=== PATIENT | female | born 1985 | race Caucasian/White ===

== ENCOUNTER 2020-04-05 03:07 | Emergency (ER) | payer BC ==
[2020-04-05 03:14] VITALS: BP 157/95; PULSE 107
[2020-04-05] MEDS ORDERED: Sodium Chloride 0.9% 10 ML Syringe FLUSH PRN (03:24)
[2020-04-05] MEDS ORDERED: Sodium Chloride 0.9% 1,000 ML IV SCH (03:30)
[2020-04-05] MEDS ORDERED: Lidocaine 1% 50 ML MDV INJECT ONE (03:37)
--- NOTE | 2020-04-05 03:43 | EDM.PDOCBH ---
ED HPI GENERAL MEDICAL PROBLEM - General Chief Complaint: Behavioral/Psych Stated Complaint: [facility] Time Seen by Provider: 04/05/20 03:14 Source of Information: Reports: Patient, RN Notes Reviewed - History of Present Illness INITIAL COMMENTS - FREE TEXT/NARRATIVE: 34 yr old female brought here by [facility] after being found outside house intoxicated and having cut her L wrist. Now on arrival to ED pt is remorseful, states she was upset that with relationship that 18 yr old son is having with girlfriend. States the "girlfriend lied about something"and that made her upset. Wanted to talk to her but all he wanted to do was sleep. States I "lost it and cut my wrist" She denies feeling depressed, states she does not want to . Has been drinking vodka. - Related Data Allergies Allergy/AdvReac Type Severity Reaction Status Date / Time No Known Allergies Allergy Verified 04/05/20 03:14 Home Meds: Home Meds . 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 Endocrine/Metabolic History: Reports: Obesity/BMI 30+ Hematologic History: Reports: Other (See Below) Other Hematologic History: Liden factor 5 Immunologic History: Reports: None Oncologic (Cancer) History: Reports: None Dermatologic History: Reports: None - Infectious Disease History Infectious Disease History: Reports: Mononucleosis, MRSA - Past Surgical History HEENT Surgical History: Reports: Adenoidectomy, Myringotomy w Tube(s), Tonsillectomy Female Surgical History: Reports: Section, Hysterectomy, Salpingo- Oophorectomy Social & Family History - Family History Family Medical History: Noncontributory - Tobacco Use Smoking Status *Q: Current Every Day Smoker Years of Tobacco use: 10 Packs/Tins Daily: 1 - Caffeine Use Caffeine Use: Reports: None - Recreational Drug Use Recreational Drug Use: Yes Recreational Drug Type: Reports: Marijuana/Hashish ED ROS GENERAL - Review of Systems Review Of Systems: See Below Constitutional: Denies: Fever HEENT: Reports: No Symptoms Respiratory: Denies: Shortness of Breath Cardiovascular: Denies: Chest Pain GI/Abdominal: Denies: Abdominal Pain, Nausea, Vomiting Musculoskeletal: Reports: Other (Lac injuries L wrist) Neurological: Reports: Weakness. Denies: Numbness, Tingling Psychiatric: Reports: Mood Lability. Denies: Depression, Homicidal Ideation ED EXAM, BEHAVIORAL HEALTH - Physical Exam Exam: See Below Exam Limited By: Intoxication General Appearance: Alert, No Apparent Distress Eye Exam: Bilateral Eye: PERRL Head: Atraumatic Neck: Supple Respiratory/Chest: No Respiratory Distress, Lungs Clear, Normal Breath Sounds Cardiovascular: Tachycardia Extremities: Other (7 cm full skin thickness Lac L mid forearm, gaping, horizontal, 4 cm and 3 cm mildly gaping lac below that along with a few superficial abrasions. ) Neurological: Alert, Normal Mood/Affect (at least mildly intoxicated but answers questions appropriately, cooperative with exam), No Motor/Sensory Deficits Psychiatric: Alert, Normal Cognition, Normal Mood, Oriented. No: Flight of Ideas, Homicidal Thoughts, Suicidal Plan, Suicidal Thoughts Skin Exam: Warm, Dry, Normal color ED LACERATION PROCEDURES - Laceration/Wound Repair Left Anterior Arm Lac/wound length in cm: 7 Appearance: Linear, Clean Distal NVT: Neuro & Vascular Intact Anesthetic Type: Local Local Anesthesia - Lidocaine (Xylocaine): 1% Plain Skin Prep: Saline Suture Size: 3-0 # of Sutures: 16 Suture Type: Nylon COURSE, BEHAVIORAL HEALTH COMP - Course Vital Signs: Last Vital Signs Temp 97.3 F 04/05/20 03:10 Pulse 107 H 04/05/20 03:10 Resp 16 04/05/20 03:10 BP 157/95 H 04/05/20 03:10 Pulse Ox 97 04/05/20 03:10 Orders, Labs, Meds: Laboratory Tests 04/05/20 04/05/20 04/05/20 Range/Units 03:25 03:50 03:50 WBC 6.91 (3.98-10.04) K/mm3 RBC 3.97 L (3.98-5.22) M/mm3 Hgb 14.0 D (11.2-15.7) gm/dl Hct 41.8 (34.1-44.9) % MCV 105.3 H D (79.4-94.8) fl MCH 35.3 H (25.6-32.2) pg MCHC 33.5 (32.2-35.5) g/dl RDW Std Deviation 53.9 H (36.4-46.3) fL Plt Count 141 L D (182-369) K/mm3 MPV 8.9 L (9.4-12.3) fl Neut % (Auto) 51.1 (34.0-71.1) % Lymph % (Auto) 37.0 (19.3-51.7) % [place] % (Auto) 7.8 (4.7-12.5) % Eos % (Auto) 3.0 (0.7-5.8) Baso % (Auto) 1.0 (0.1-1.2) % Neut # (Auto) 3.52 (1.56-6.13) K/mm3 Lymph # (Auto) 2.56 (1.18-3.74) K/mm3 [place] # (Auto) 0.54 H (0.24-0.36) K/mm3 Eos # (Auto) 0.21 (0.04-0.36) K/mm3 Baso # (Auto) 0.07 (0.01-0.08) K/mm3 Manual Slide Review Abnormal smear Sodium 143 (136-145) mEq/L Potassium 4.0 (3.5-5.1) mEq/L Chloride 104 (98-107) mEq/L Carbon Dioxide 21 (21-32) mEq/L Anion Gap 22.0 H (5-15) BUN 9 (7-18) mg/dL Creatinine 0.8 (0.55-1.02) mg/dL Est Cr Clr Drug Dosing 84.76 mL/min Estimated GFR (MDRD) > 60 (>60) mL/min BUN/Creatinine Ratio 11.3 L (14-18) Glucose 106 (74-106) mg/dL Calcium 9.4 (8.5-10.1) mg/dL Total Bilirubin 3.3 H (0.2-1.0) mg/dL AST 202 H (15-37) U/L ALT 55 (14-59) U/L Alkaline Phosphatase 250 H (46-116) U/L Total Protein 8.8 H (6.4-8.2) g/dl Albumin 4.1 (3.4-5.0) g/dl Globulin 4.7 gm/dL Albumin/Globulin Ratio 0.9 L (1-2) Urine Opiates Screen Negative (BDFJSE=051) Ur Buprenorphine Scrn Negative (CUTOFF=10) Ur Oxycodone Screen Negative (YEK4VL=289) Urine Methadone Screen Negative (TQBSPA=397) Ur Propoxyphene Screen Negative (PHREPS=512) Ur Barbiturates Screen Negative (PDONMB=510) Ur Tricyclics Screen Negative (ZCDBJD=291) Ur Phencyclidine Scrn Negative (CUTOFF=25) Ur Amphetamine Screen Negative (RSDXRM=101) U Methamphetamines Scrn Negative (BPDPAV=640) U Benzodiazepines Scrn Negative (QKQLNC=473) U Cocaine Metab Screen Negative (MOGFML=206) U Marijuana (THC) Screen Presumptive positive H (CUTOFF=50) Ethyl Alcohol 0.26 (0.00) gm% Medications Discontinued Medications Generic Name Dose Route Start Last Admin Trade Name Freq PRN Reason Stop Dose Admin Diphtheria/Tetanus/Acell Pertussis 0.5 ml 04/05/20 05:49 04/05/20 06:37 Adacel IM 04/05/20 05:50 0.5 ml .ONCE ONE Administration Sodium Chloride 1,000 mls @ 999 mls/hr 04/05/20 03:30 04/05/20 03:53 Normal Saline IV 999 mls/hr ONETIME CORDELL Administration Lidocaine HCl 50 ml 04/05/20 03:37 04/05/20 03:53 Xylocaine 1% INJECT 04/05/20 03:38 50 ml ONETIME ONE Administration Sodium Chloride 10 ml 04/05/20 03:24 04/05/20 03:53 Saline Flush FLUSH 10 ml ASDIRECTED PRN Administration Keep Vein Open Re-Assessment/Re-Exam: Lac repair continued Lac #2. L forearm 4 cm linear, anesth. with 1 % lidocaine, repaired with 6 3- O nylon sutures Lac #3 L forearm cm linear. anesth with 1 % lidocaine. repaired with 3 3-O nylon sutures 07:00. Etoh was 0.26 on arrival 4 hrs ago. Have given 1 liter NS, repaired multiple lac injuries L forearm. She repeats that I "just lost control". She continues to state she did this out of frustration and the alcohol. She does not want to . She and her both believe it is safe for her to go home. She does want help to stop drinking and is willing to follow up at [facility]. Discharge instr. as documented. Departure - Departure Time of Disposition: 07:30 Disposition: Home, Self-Care 01 Condition: Fair Clinical Impression: Stress reaction Alcohol intoxication Qualifiers: Complication of substance-induced condition: uncomplicated Qualified Code(s): F10.920 - Alcohol use, unspecified with intoxication, uncomplicated Laceration of forearm Qualifiers: Encounter type: initial encounter Laterality: left Qualified Code(s): S51.812A - Laceration without foreign body of left forearm, initial encounter - Discharge Information Instructions: Binge-Drinking Information, Adult, Laceration Care, Adult, [id number], Stress Referrals: PCP,None [Primary Care Provider] - Forms: ED Department Discharge Additional Instructions: Laceration care instr. Stitches out in 10 days. They can be removed at your regular medical clinic. Avoid further alcohol as best you can. [phone] for appointment or you can go in at 8:30 any morning Wednesday through Wednesday for initial intake interview. Return to ED as needed if symptoms worsening in any way. Sepsis Event Note (ED) - Evaluation Sepsis Screening Result: No Definite Risk
[2020-04-05] MEDS ORDERED: Diphtheria,Pertussis(Acell),Tetanus Vaccine 0.5 ML Syringe IM ONE (05:49)
== END 2020-04-05 07:45 | disposition home or self-care (01) ==
LOC: JD.ED 03:07
DX: S51.812A Laceration without foreign body of left forearm, initial encounter (principal); F10.120 Alcohol abuse with intoxication, uncomplicated; F43.9 Reaction to severe stress, unspecified; E66.9 Obesity, unspecified; Z68.42 Body mass index [BMI] 45.0-49.9, adult; Z23 Encounter for immunization; W26.8XXA Contact with other sharp object(s), not elsewhere classified, initial encounter
CPT/HCPCS: 12002; 36415; 80053; 80306; 80307; 85025; 90471; 90715; 99285; J2001; J7030; 99282

== ENCOUNTER 2020-06-16 19:56 | Emergency (ER) | payer BC ==
[2020-06-16 20:14] VITALS: BP 136/74; PULSE 99
--- NOTE | 2020-06-16 21:25 | EDM.PDOC ---
ED HPI GENERAL MEDICAL PROBLEM - General Chief Complaint: General Stated Complaint: TURNED YELLOW SWOLLEN STOMACH Time Seen by Provider: 06/16/20 20:35 Source of Information: Reports: Patient History Limitations: Reports: No Limitations - History of Present Illness INITIAL COMMENTS - FREE TEXT/NARRATIVE: Arely is a pleasant 34-year-old woman with a past medical history significant for chronic daily alcoholism, who now presents the ED with painless jaundice. She states that she ordinarily drinks a 1.75 L bottle of vodka every 3 days, however, she developed jaundice, scleral icterus, and orange colored urine about 2 months ago. She stopped drinking about 6 weeks ago, and has remained sober since. She states that she has had increased thirst for over a month. She has had nausea and a decreased appetite for 1 week, and states that she vomited 2 days ago. She reports an approximately 39 pound weight gain since last week. She states that she developed a distended abdomen 2 days ago. She feels slightly constipated. No recent diarrhea. No recent cough or dyspnea, chest pain or palpitations, or urinary symptoms. She states that she has had a fever come and go her entire life, with a temperature of 100.7 degrees last night. The patient states that she has been taking an [id number] "Detox cleanse", 2 tablets once a day, for the past month. The patient states that she has not had any medical evaluation for her jaundice prior to tonight. It is not clear what precipitated her coming to the ED tonight. Here in the ED, the patient is found to be hemodynamically stable, afebrile, saturating 96% on room air. The patient's PCP is Dr. Julianna Erwin. She states that she last saw Dr. Erwin about 2 years ago. Abdomen Pain Score (Numeric/FACES): 6 - Related Data Allergies Allergy/AdvReac Type Severity Reaction Status Date / Time No Known Allergies Allergy Verified 06/16/20 20:15 Home Meds: Home Meds Multivitamin [Multivitamins] 1 cap PO DAILY 06/16/20 [History] Past Medical History Gastrointestinal History: Reports: Other (See Below) (States diagnosed with celiac disease, however she states that it was by colonoscopy, which is NOT how is diagnosed) Genitourinary History: Reports: Urinary Incontinence (stress incontinence) Psychiatric History: Reports: Addiction (alcohol, opioids), Depression (untreated), Psych Hospitalization(s), Suicide Attempt, Other (See Below) (Fibromyalgia) Endocrine/Metabolic History: Reports: Obesity/BMI 30+ Hematologic History: Reports: Other (See Below) (Factor V Leiden - untreated. No history of DVT.) - Infectious Disease History Infectious Disease History: Reports: Mononucleosis, MRSA - Past Surgical History HEENT Surgical History: Reports: Adenoidectomy, Myringotomy w Tube(s) (bilateral), Tonsillectomy GI Surgical History: Reports: Colonoscopy (x 1) Female Surgical History: Reports: Section (x 2), Hysterectomy (complete), Tubal Ligation Social & Family History - Family History Family Medical History: Noncontributory - Tobacco Use Tobacco Use Status *Q: Current Every Day Tobacco User Years of Tobacco use: 12 Packs/Tins Daily: 1 - Caffeine Use Caffeine Use: Reports: None - Alcohol Use Alcohol Use History: Yes Alcohol Use Frequency: Daily (see HPI) - Recreational Drug Use Recreational Drug Use: Yes Drug Use in Last 12 Months: Yes Recreational Drug Type: Reports: Marijuana/Hashish (smokes daily), Other (see below) (Prior abuse of opioids) - Living Situation & Occupation Living situation: Reports: , with Spouse, with Family (2 kids + her father) Occupation: Unemployed ED ROS GENERAL - Review of Systems Review Of Systems: Comprehensive ROS is negative, except as noted in HPI. ED EXAM, GENERAL - Physical Exam Exam: See Below Exam Limited By: No Limitations General Appearance: Alert, WD/WN, No Apparent Distress Eye Exam: Bilateral Eye: EOMI, Other (scleral icterus) Ears: Normal External Exam, Hearing Grossly Normal Nose: Normal Inspection Throat/Mouth: Normal Inspection, Normal Lips, Normal Voice, No Airway Compromise Head: Atraumatic, Normocephalic Neck: Normal Inspection, Full Range of Motion Respiratory/Chest: No Respiratory Distress, Lungs Clear, Normal Breath Sounds, No Accessory Muscle Use Cardiovascular: Normal Peripheral Pulses, Regular Rate, Rhythm, No Gallop, No JVD, No Murmur, No Rub Peripheral Pulses: 3+: Radial (L), Radial (R) GI/Abdominal: Normal Bowel Sounds, Soft, No Distention, No Abnormal Bruit, Tender (Mild, generalized, non-focal), Other (No obvious ascites. No obvious organomegaly.) Back Exam: Normal Inspection, Full Range of Motion, NT Extremities: Normal Inspection, Normal Range of Motion, Normal Capillary Refill Neurological: Alert, Oriented, Normal Cognition, No Motor/Sensory Deficits Psychiatric: Normal Affect Skin Exam: Warm, Dry, Intact, Jaundice, Rash (Mild erythematous on the anterior chest) #1 Interpretation EKG Date: 06/16/20 Time: 21:20 Rhythm: NSR Rate (Beats/Min): 94 [place]: Normal P-Wave: Present QRS: Normal ST-T: Normal QT: Normal (near upper limit of normal) Comparison: NA - No Prior EKG Course - Vital Signs Last Recorded V/S: Last Vital Signs Temp 36.6 C 06/16/20 20:06 Pulse 99 06/16/20 20:06 Resp 16 06/16/20 20:06 BP 136/74 06/16/20 20:06 Pulse Ox 96 06/16/20 20:06 Orthostatic Blood Pressure [ 121/73 Standing] Orthostatic Blood Pressure [ 124/62 Supine] - Orders/Labs/Meds Orders: Active Orders 24 hr Category Date Time Status EKG Documentation Completion [RC] STAT Care 06/16/20 21:03 Active Orthostatic Vital Signs [RC] STAT Care 06/16/20 21:03 Active Chest 2V [CR] Stat Exams 06/16/20 21:02 Taken CORONAVIRUS COVID-19 PCR PHL Stat Lab 06/16/20 22:05 Received CULTURE BLOOD [BC] Stat Lab 06/16/20 21:30 Received CULTURE BLOOD [BC] Stat Lab 06/16/20 21:40 Received HEPATITIS PANEL (4) [REF] Stat Lab 06/16/20 21:40 Received Blood Culture x2 Reflex Set [OM.PC] Stat Oth 06/16/20 21:07 Ordered Labs: Laboratory Tests 06/16/20 06/16/20 06/16/20 Range/Units 21:30 21:30 21:30 WBC 8.43 (3.98-10.04) K/mm3 RBC 3.23 L (3.98-5.22) M/mm3 Hgb 11.1 L D (11.2-15.7) gm/dl Hct 33.5 L (34.1-44.9) % MCV 103.7 H (79.4-94.8) fl MCH 34.4 H (25.6-32.2) pg MCHC 33.1 (32.2-35.5) g/dl RDW Std Deviation 61.9 H (36.4-46.3) fL Plt Count 148 L (182-369) K/mm3 MPV 10.0 (9.4-12.3) fl Neutrophils % (Manual) 74 H (40-60) % Band Neutrophils % 0 (0-10) % Lymphocytes % (Manual) 17 L (20-40) % Atypical Lymphs % 0 % Monocytes % (Manual) 5 (2-10) % Eosinophils % (Manual) 4 (0.7-5.8) % Basophils % (Manual) 0 L (0.1-1.2) Platelet Estimate Adequate Anisocytosis 2+ moderate Macrocytosis 2+ moderate Spherocytes Few RBC Morph Comment Not Reportable PT (9.7-11.7) SECONDS INR APTT (22-31) SECONDS Sodium 135 L (136-145) mEq/L Potassium 3.8 (3.5-5.1) mEq/L Chloride 101 (98-107) mEq/L Carbon Dioxide 24 (21-32) mEq/L Anion Gap 13.8 (5-15) BUN 8 (7-18) mg/dL Creatinine 0.7 (0.55-1.02) mg/dL Est Cr Clr Drug Dosing 96.86 mL/min Estimated GFR (MDRD) > 60 (>60) mL/min BUN/Creatinine Ratio 11.4 L (14-18) Glucose 136 H (74-106) mg/dL Lactic Acid 1.7 (0.4-2.0) mmol/L Calcium 8.3 L (8.5-10.1) mg/dL Magnesium 1.8 (1.8-2.4) mg/dl Total Bilirubin 20.6 H (0.2-1.0) mg/dL Direct Bilirubin (0.0-0.2) mg/dl GGT (5-55) U/L AST 97 H (15-37) U/L ALT 24 (14-59) U/L Alkaline Phosphatase 222 H (46-116) U/L Lactate Dehydrogenase 144 (81-234) U/L NT-Pro-B Natriuret Pep (0-125) pg/mL Total Protein 5.5 L (6.4-8.2) g/dl Albumin 2.1 L (3.4-5.0) g/dl Globulin 3.4 gm/dL Albumin/Globulin Ratio 0.6 L (1-2) Lipase 87 (73-393) U/L Salicylates (2.8-20) mg/dL Urine Opiates Screen (VSGFGJ=835) Ur Buprenorphine Scrn (CUTOFF=10) Ur Oxycodone Screen (FAH6YD=116) Urine Methadone Screen (WBYDJP=468) Ur Propoxyphene Screen (WIAYUL=250) Acetaminophen 0 L (10-30) ug/mL Ur Barbiturates Screen (BYVQDE=991) Ur Tricyclics Screen (TEJSCX=062) Ur Phencyclidine Scrn (CUTOFF=25) Ur Amphetamine Screen (BMDEPO=420) U Methamphetamines Scrn (VPFLPZ=701) U Benzodiazepines Scrn (GEEVLR=403) U Cocaine Metab Screen (UXWZIF=895) U Marijuana (THC) Screen (CUTOFF=50) Ethyl Alcohol 0.00 (0.00) gm% 06/16/20 06/16/20 06/16/20 Range/Units 21:30 21:30 21:30 WBC (3.98-10.04) K/mm3 RBC (3.98-5.22) M/mm3 Hgb (11.2-15.7) gm/dl Hct (34.1-44.9) % MCV (79.4-94.8) fl MCH (25.6-32.2) pg MCHC (32.2-35.5) g/dl RDW Std Deviation (36.4-46.3) fL Plt Count (182-369) K/mm3 MPV (9.4-12.3) fl Neutrophils % (Manual) (40-60) % Band Neutrophils % (0-10) % Lymphocytes % (Manual) (20-40) % Atypical Lymphs % % Monocytes % (Manual) (2-10) % Eosinophils % (Manual) (0.7-5.8) % Basophils % (Manual) (0.1-1.2) Platelet Estimate Anisocytosis Macrocytosis Spherocytes RBC Morph Comment PT 22.4 H (9.7-11.7) SECONDS INR 2.12 APTT 31 (22-31) SECONDS Sodium (136-145) mEq/L Potassium (3.5-5.1) mEq/L Chloride (98-107) mEq/L Carbon Dioxide (21-32) mEq/L Anion Gap (5-15) BUN (7-18) mg/dL Creatinine (0.55-1.02) mg/dL Est Cr Clr Drug Dosing mL/min Estimated GFR (MDRD) (>60) mL/min BUN/Creatinine Ratio (14-18) Glucose (74-106) mg/dL Lactic Acid (0.4-2.0) mmol/L Calcium (8.5-10.1) mg/dL Magnesium (1.8-2.4) mg/dl Total Bilirubin (0.2-1.0) mg/dL Direct Bilirubin 15.90 H (0.0-0.2) mg/dl GGT 116 H (5-55) U/L AST (15-37) U/L ALT (14-59) U/L Alkaline Phosphatase (46-116) U/L Lactate Dehydrogenase (81-234) U/L NT-Pro-B Natriuret Pep (0-125) pg/mL Total Protein (6.4-8.2) g/dl Albumin (3.4-5.0) g/dl Globulin gm/dL Albumin/Globulin Ratio (1-2) Lipase (73-393) U/L Salicylates < 0.2 L (2.8-20) mg/dL Urine Opiates Screen (WCUXAK=708) Ur Buprenorphine Scrn (CUTOFF=10) Ur Oxycodone Screen (MLC7HA=138) Urine Methadone Screen (KPOUJC=278) Ur Propoxyphene Screen (QOODNH=803) Acetaminophen (10-30) ug/mL Ur Barbiturates Screen (RNWAQM=184) Ur Tricyclics Screen (BKIJIT=751) Ur Phencyclidine Scrn (CUTOFF=25) Ur Amphetamine Screen (BDTVGI=800) U Methamphetamines Scrn (GHFCFL=065) U Benzodiazepines Scrn (JGIFCG=584) U Cocaine Metab Screen (JANOED=798) U Marijuana (THC) Screen (CUTOFF=50) Ethyl Alcohol (0.00) gm% 06/16/20 06/16/20 Range/Units 21:30 22:05 WBC (3.98-10.04) K/mm3 RBC (3.98-5.22) M/mm3 Hgb (11.2-15.7) gm/dl Hct (34.1-44.9) % MCV (79.4-94.8) fl MCH (25.6-32.2) pg MCHC (32.2-35.5) g/dl RDW Std Deviation (36.4-46.3) fL Plt Count (182-369) K/mm3 MPV (9.4-12.3) fl Neutrophils % (Manual) (40-60) % Band Neutrophils % (0-10) % Lymphocytes % (Manual) (20-40) % Atypical Lymphs % % Monocytes % (Manual) (2-10) % Eosinophils % (Manual) (0.7-5.8) % Basophils % (Manual) (0.1-1.2) Platelet Estimate Anisocytosis Macrocytosis Spherocytes RBC Morph Comment PT (9.7-11.7) SECONDS INR APTT (22-31) SECONDS Sodium (136-145) mEq/L Potassium (3.5-5.1) mEq/L Chloride (98-107) mEq/L Carbon Dioxide (21-32) mEq/L Anion Gap (5-15) BUN (7-18) mg/dL Creatinine (0.55-1.02) mg/dL Est Cr Clr Drug Dosing mL/min Estimated GFR (MDRD) (>60) mL/min BUN/Creatinine Ratio (14-18) Glucose (74-106) mg/dL Lactic Acid (0.4-2.0) mmol/L Calcium (8.5-10.1) mg/dL Magnesium (1.8-2.4) mg/dl Total Bilirubin (0.2-1.0) mg/dL Direct Bilirubin (0.0-0.2) mg/dl GGT (5-55) U/L AST (15-37) U/L ALT (14-59) U/L Alkaline Phosphatase (46-116) U/L Lactate Dehydrogenase (81-234) U/L NT-Pro-B Natriuret Pep 230 H (0-125) pg/mL Total Protein (6.4-8.2) g/dl Albumin (3.4-5.0) g/dl Globulin gm/dL Albumin/Globulin Ratio (1-2) Lipase (73-393) U/L Salicylates (2.8-20) mg/dL Urine Opiates Screen Negative (MSXXEH=887) Ur Buprenorphine Scrn Negative (CUTOFF=10) Ur Oxycodone Screen Negative (IHE7NN=619) Urine Methadone Screen Negative (ABGZOY=376) Ur Propoxyphene Screen Negative (EGKTLV=093) Acetaminophen (10-30) ug/mL Ur Barbiturates Screen Negative (DMONHL=695) Ur Tricyclics Screen Presumptive positive H (LGXXAA=750) Ur Phencyclidine Scrn Negative (CUTOFF=25) Ur Amphetamine Screen Negative (QNVVYU=889) U Methamphetamines Scrn Negative (DJKGVR=318) U Benzodiazepines Scrn Negative (BBISIU=751) U Cocaine Metab Screen Negative (YGYPGV=580) U Marijuana (THC) Screen Presumptive positive H (CUTOFF=50) Ethyl Alcohol (0.00) gm% - Re-Assessments/Exams Free Text/Narrative Re-Assessment/Exam: 06/16/20 21:16 As above, the patient has had jaundice with orange-colored urine for the past 2 months, although did not stop drinking alcohol until 6 weeks ago. She has been thirsty for more than a month. She has had a week of nausea with decreased appetite, and vomited 2 days ago. She reports an approximately 39 pound weight gain over the past week, with 2 days of distended abdomen, although on physical exam, she does not have obvious ascites, however, her underlying body habitus makes examination of her abdomen difficult. No obvious organomegaly. The patient is likely suffering from alcoholic hepatitis or cirrhosis, although other etiologies are possible. Since the patient is not acutely ill, and indeed, it is unclear what specifically precipitated her coming to the ED tonight, I explained to the patient that we will simply obtain a snapshot of her condition tonight, and she will almost certainly be discharged home, with the need to follow-up with her PCP and subsequent referral to GI/hepatology. I have therefore ordered a work-up that includes orthostatics, blood work that includes a send-out hepatitis panel, 2 sets of blood cultures, a urine drug screen, a send-out swab for the SARS-CoV-2 virus, a chest x-ray, and an ECG. 06/16/20 22:03 The patient is not orthostatic. 2-view radiograph of the chest is read by ad as "Normal". 06/16/20 23:14 The patient's CBC is remarkable for a H/H mildly depressed at 11.1/33.5, and thrombocytopenia of 148,000, with the remainder of her CBC being unremarkable. Her CMP is remarkable for a sodium at the lower limits of normal at 135. Her blood glucose is mildly elevated at 136. Her TBil significantly elevated at 20.6 with a DBil of acutely elevated at 15.90. Her GGTP is modestly elevated at 116. Her alkaline phosphatase is mildly elevated at 222. Her AST is elevated at 97 with an ALT normal at 24, with the remainder of her CMP being unremarkable. Her magnesium level is within normal limits at 1.8. Her lactic acid level is within normal limits at 1.7. Her lipase level is within normal limits at 87. Her LDH is within normal limits at 144. Her BNP is mildly elevated at 230. Her PTT is mildly elevated at 22.4 with a PT of 31 and an INR of 2.12. Her acetaminophen level is 0. Her salicylate level is undetectably low. Her EtOH level is 0.00. Her urine drug screen is positive for both tricyclic antidepressants and marijuana, and is otherwise negative. 06/17/20 00:19 Test results discussed with the patient. As above, the patient has clear evidence of liver failure. Further evaluation is necessary. Her hepatitis panel is a send out test. I do not see an indication for admitting her to the hospital, although we do not have any beds available at this time, anyway. I will discharge her home with the recommendation that she consume a low-salt diet, stop taking the "Detox cleanse" or any other home remedies, then follow-up with her PCP to arrange to be evaluated by a Fur Polisher or Rental Car Deliverer. The patient expressed understanding. Departure - Departure Time of Disposition: 00:21 Disposition: Home, Self-Care 01 Condition: Good Clinical Impression: Liver failure - Discharge Information *PRESCRIPTION DRUG MONITORING PROGRAM REVIEWED*: Not Applicable *COPY OF PRESCRIPTION DRUG MONITORING REPORT IN PATIENT NANDO: Not Applicable Instructions: Liver Failure Referrals: Julianna Erwin MD [Physician] - Forms: ED Department Discharge Additional Instructions: You were seen in the emergency room after developing jaundice and orange urine about 2 months ago, with increased thirst for over a month, and an approximately 39 pound weight gain over the past week. Work-up in the ER included positional blood pressure checks, blood work, 2 sets of blood cultures, a urine drug screen, a sent-note swab for the SARS-CoV-2 virus, a chest x-ray, and an ECG. The work-up confirms that you have significant image to your liver. We cannot tell at this time if you have hepatitis or cirrhosis, but cirrhosis is likely. We recommend that you stop taking "Detox cleanse" or any other [id number] or home remedies. Do not take more than 1 g of Tylenol within a 24-hour period. We recommend that you eat a low-salt diet. It is imperative that you follow-up with your PCP, Dr. Julianna Erwin, to arrange to be seen by a Fur Polisher or Rental Car Deliverer. If any other problems, please do not hesitate to return to the ER. Sepsis Event Note (ED) - Evaluation Sepsis Screening Result: No Definite Risk - Focused Exam Vital Signs: Vital Signs Temp Pulse Resp BP Pulse Ox 06/16/20 20:06 36.6 C 99 16 136/74 96 - My Orders Last 24 Hours: My Active Orders 06/16/20 21:02 Chest 2V [CR] Stat 06/16/20 21:03 EKG Documentation Completion [RC] STAT Orthostatic Vital Signs [RC] STAT 06/16/20 21:07 Blood Culture x2 Reflex Set [OM.PC] Stat 06/16/20 21:30 CULTURE BLOOD [BC] Stat 06/16/20 21:40 CULTURE BLOOD [BC] Stat HEPATITIS PANEL (4) [REF] Stat 06/16/20 22:05 CORONAVIRUS COVID-19 PCR PHL Stat - Assessment/Plan Last 24 Hours: My Active Orders 06/16/20 21:02 Chest 2V [CR] Stat 06/16/20 21:03 EKG Documentation Completion [RC] STAT Orthostatic Vital Signs [RC] STAT 06/16/20 21:07 Blood Culture x2 Reflex Set [OM.PC] Stat 06/16/20 21:30 CULTURE BLOOD [BC] Stat 06/16/20 21:40 CULTURE BLOOD [BC] Stat HEPATITIS PANEL (4) [REF] Stat 06/16/20 22:05 CORONAVIRUS COVID-19 PCR PHL Stat
[2020-06-16 22:23] LABS: ACETAMINOPHEN 0 ug/mL (10-30)
== END 2020-06-17 00:38 | disposition home or self-care (01) ==
LOC: JD.ED 19:56
DX: K72.90 Hepatic failure, unspecified without coma (principal); E66.9 Obesity, unspecified; F17.210 Nicotine dependence, cigarettes, uncomplicated; Z90.710 Acquired absence of both cervix and uterus; Z68.42 Body mass index [BMI] 45.0-49.9, adult; Z20.828 Contact with and (suspected) exposure to other viral communicable diseases
CPT/HCPCS: 36415; 71046; 80053; 80074; 80306; 80307; 82248; 82977; 83605; 83615; 83690; 83735; 83880; 85007; 85027; 85610; 85730; 87040; 93005; 93010; 99282; 99285-25; U0002

== ENCOUNTER 2020-07-03 09:43 | Emergency (ER) | payer BC ==
[2020-07-03 09:59] VITALS: PULSE 85
--- NOTE | 2020-07-03 10:31 | EDM.PDOC ---
ED HPI GENERAL MEDICAL PROBLEM - General Chief Complaint: Abdominal Pain Stated Complaint: ABDOMINAL PAIN/SOB Time Seen by Provider: 07/03/20 10:22 - History of Present Illness INITIAL COMMENTS - FREE TEXT/NARRATIVE: 34-year-old female sent to the emergency room by her regular physician with worsening jaundice with weakness and shortness of breath. Patient was seen here around the of last month with what appeared to be an alcoholic liver failure. She followed up with a regular healthcare provider shortly after this, and had a follow-up today. Apparently she has developed increased weakness she is unable to care for self at home. She presented to the clinic and here in the emergency room in a wheelchair. She is complaining of abdominal pain no significant nausea or vomiting but no appetite. The abdominal pain seems to be generalized. She has noticed increased swelling in her abdomen. She also also noticed that her skin color is progressively getting more orange. She had some jaundice on her last visit to the emergency room here. Patient has not had any alcohol in quite some time. She had been sober for approximately 2 months prior to her last visit and has had nothing to drink since that time. Abdomen Pain Score (Numeric/FACES): 8 - Related Data Allergies Allergy/AdvReac Type Severity Reaction Status Date / Time No Known Allergies Allergy Verified 07/03/20 10:00 Home Meds: Home Meds Multivitamin [Multivitamins] 1 cap PO DAILY 06/16/20 [History] L.acidoph,Paracasei, B.lactis [Probiotic] 1 tab PO DAILY 07/03/20 [History] Thiamine [Vitamin B-1] 1 tab PO DAILY 07/03/20 [History] Past Medical History - Past Health History Medical/Surgical History: Denies Medical/Surgical History HEENT History: Reports: Epistaxis Cardiovascular History: Reports: Hypertension Respiratory History: Reports: None Gastrointestinal History: Reports: Chronic Constipation, Jaundice Other Gastrointestinal History: celiac disease, dx 10 years ago Genitourinary History: Reports: Renal Calculus, Urinary Incontinence, Other (See Below) Other Genitourinary History: Interstitial Cystitis 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 Endocrine/Metabolic History: Reports: Obesity/BMI 30+ Hematologic History: Reports: Other (See Below) Other Hematologic History: Factor V Leiden Immunologic History: Reports: None Oncologic (Cancer) History: Reports: None Dermatologic History: Reports: Other (See Below) Other Dermatologic History: Hirsutism - Infectious Disease History Infectious Disease History: Reports: MRSA - Past Surgical History HEENT Surgical History: Reports: Adenoidectomy, Myringotomy w Tube(s), Tonsillectomy GI Surgical History: Reports: Colonoscopy Female Surgical History: Reports: Section, Hysterectomy, Tubal Ligation Social & Family History - Family History Family Medical History: Noncontributory - Tobacco Use Tobacco Use Status *Q: Light Tobacco User Years of Tobacco use: 12 Packs/Tins Daily: 1 - Caffeine Use Caffeine Use: Reports: None - Recreational Drug Use Recreational Drug Type: Reports: Marijuana/Hashish - Living Situation & Occupation Living situation: Reports: , with Spouse, with Family (2 kids + her father) Occupation: Unemployed ED ROS GENERAL - Review of Systems Review Of Systems: See Below Constitutional: Reports: Weakness. Denies: Fever, Chills, Night Sweats, Diaphoresis HEENT: Reports: No Symptoms Respiratory: Reports: Shortness of Breath. Denies: Wheezing, Pleuritic Chest Pain, Cough, Hemoptysis Cardiovascular: Reports: No Symptoms Endocrine: Reports: Fatigue GI/Abdominal: Reports: Abdominal Pain. Denies: Constipation, Diarrhea, Nausea, Vomiting : Reports: Other (Her urine is dark) Musculoskeletal: Reports: No Symptoms Skin: Reports: No Symptoms Neurological: Denies: Confusion, Headache Psychiatric: Reports: No Symptoms ED EXAM, GI/ABD - Physical Exam Exam: See Below Exam Limited By: No Limitations General Appearance: Alert, Obese, Other (She is obviously jaundiced. She prefers lying on her side is makes breathing easier.) Eyes: Bilateral: Normal Appearance (Sclera icteric bilaterally), EOMI Ears: Normal External Exam, Normal Canal, Hearing Grossly Normal, Normal TMs Nose: Normal Inspection, Normal Mucosa, No Blood Throat/Mouth: Normal Inspection, Normal Lips, Normal Teeth, Normal Gums, Normal Oropharynx, Normal Voice, No Airway Compromise Head: Atraumatic, Normocephalic Neck: Normal Inspection, Supple, Non-Tender, Full Range of Motion Respiratory/Chest: No Respiratory Distress, Lungs Clear, Normal Breath Sounds Cardiovascular: Regular Rate, Rhythm, No Murmur GI/Abdominal Exam: Normal Bowel Sounds, Soft, Other (This with some ascites generalized discomfort no rigidity rebound or guarding) Back Exam: Normal Inspection. No: CVA Tenderness (L), CVA Tenderness (R) Extremities: Normal Inspection, Pedal Edema Neurological: Alert, Oriented, Normal Cognition Psychiatric: Normal Affect, Normal Mood Skin Exam: Other (Jaundiced most notable in her head this fades noticeably in the low back and abdomen but is still noticeable in her lower extremities.) Course - Vital Signs Last Recorded V/S: Last Vital Signs Temp 36.6 C 07/03/20 09:55 Pulse 85 07/03/20 09:55 Resp 18 07/03/20 09:55 BP 120/77 07/03/20 09:55 Pulse Ox 97 07/03/20 09:55 - Orders/Labs/Meds Orders: Active Orders 24 hr Category Date Time Status Potassium Chloride [KCl 10 MEQ in Water 100 ML] 10 meq Med 07/03/20 12:30 Active Premix Bag 1 bag IV Q1H Sodium Chloride 0.9% [Normal Saline] 1,000 ml Med 07/03/20 13:30 Active IV ASDIRECTED Medication Orders Potassium Chloride 10 meq/ (Premix) 100 mls @ 100 mls/hr IV Q1H [facility] Stop: 07/03/20 16:29 Last Admin: 07/03/20 14:42 Dose: 100 mls/hr Documented by: Infusion: 07/03/20 13:35 Dose: 100 mls/hr Documented by: Admin: 07/03/20 12:35 Dose: 100 mls/hr Documented by: ANNABELLE Sodium Chloride (Normal Saline) 1,000 mls @ 75 mls/hr IV ASDIRECTED CORDELL Last Admin: 07/03/20 13:31 Dose: 75 mls/hr Documented by: ANNABELLE Labs: Laboratory Tests 07/03/20 07/03/20 07/03/20 Range/Units 10:50 10:50 10:50 WBC 13.01 H (3.98-10.04) K/mm3 RBC 3.46 L (3.98-5.22) M/mm3 Hgb 11.7 (11.2-15.7) gm/dl Hct 34.0 L (34.1-44.9) % MCV 98.3 H D (79.4-94.8) fl MCH 33.8 H (25.6-32.2) pg MCHC 34.4 (32.2-35.5) g/dl RDW Std Deviation 55.5 H (36.4-46.3) fL Plt Count 128 L (182-369) K/mm3 MPV 9.5 (9.4-12.3) fl Neut % (Auto) 78.3 H (34.0-71.1) % Lymph % (Auto) 10.1 L (19.3-51.7) % Kaufman % (Auto) 9.2 (4.7-12.5) % Eos % (Auto) 1.5 (0.7-5.8) Baso % (Auto) 0.2 (0.1-1.2) % Neut # (Auto) 10.18 H (1.56-6.13) K/mm3 Lymph # (Auto) 1.32 (1.18-3.74) K/mm3 Kaufman # (Auto) 1.20 H (0.24-0.36) K/mm3 Eos # (Auto) 0.19 (0.04-0.36) K/mm3 Baso # (Auto) 0.03 (0.01-0.08) K/mm3 Manual Slide Review Abnormal smear PT 20.9 H (9.7-12.0) SECONDS INR 1.98 Sodium 132 L (136-145) mEq/L Potassium 2.8 L (3.5-5.1) mEq/L Chloride 99 (98-107) mEq/L Carbon Dioxide 19 L (21-32) mEq/L Anion Gap 16.8 H (5-15) BUN 26 H (7-18) mg/dL Creatinine 1.9 H D (0.55-1.02) mg/dL Est Cr Clr Drug Dosing 35.69 mL/min Estimated GFR (MDRD) 30 (>60) mL/min BUN/Creatinine Ratio 13.7 L (14-18) Glucose 98 (74-106) mg/dL Calcium 8.4 L (8.5-10.1) mg/dL Total Bilirubin 31.8 H (0.2-1.0) mg/dL Direct Bilirubin 25.60 H (0.0-0.2) mg/dl GGT 81 H (5-55) U/L AST 85 H (15-37) U/L ALT 19 (14-59) U/L Alkaline Phosphatase 270 H (46-116) U/L Ammonia (11-32) umol/L Total Protein TNP Albumin 1.9 L (3.4-5.0) g/dl Globulin 3.6 gm/dL Albumin/Globulin Ratio 0.5 L (1-2) Urine Color (Yellow) Urine Appearance (Clear) Urine pH (5.0-8.0) Ur Specific Melvin (1.005-1.030) Urine Protein (Negative) Urine Glucose (UA) (Negative) Urine Ketones (Negative) Urine Occult Blood (Negative) Urine Nitrite (Negative) Urine Bilirubin (Negative) Urine Urobilinogen (0.2-1.0) Ur Leukocyte Esterase (Negative) Urine RBC (0-5) /hpf Urine WBC (0-5) /hpf Ur Epithelial Cells (0-5) /hpf Amorphous Sediment (NOT SEEN) /hpf Urine Bacteria (FEW) /hpf Urine Mucus (FEW) /hpf Ethyl Alcohol 0.00 (0.00) gm% SARS-CoV-2 RNA (JUNIOR) (NEGATIVE) 07/03/20 07/03/20 07/03/20 Range/Units 12:00 14:18 15:32 WBC (3.98-10.04) K/mm3 RBC (3.98-5.22) M/mm3 Hgb (11.2-15.7) gm/dl Hct (34.1-44.9) % MCV (79.4-94.8) fl MCH (25.6-32.2) pg MCHC (32.2-35.5) g/dl RDW Std Deviation (36.4-46.3) fL Plt Count (182-369) K/mm3 MPV (9.4-12.3) fl Neut % (Auto) (34.0-71.1) % Lymph % (Auto) (19.3-51.7) % Kaufman % (Auto) (4.7-12.5) % Eos % (Auto) (0.7-5.8) Baso % (Auto) (0.1-1.2) % Neut # (Auto) (1.56-6.13) K/mm3 Lymph # (Auto) (1.18-3.74) K/mm3 Kaufman # (Auto) (0.24-0.36) K/mm3 Eos # (Auto) (0.04-0.36) K/mm3 Baso # (Auto) (0.01-0.08) K/mm3 Manual Slide Review PT (9.7-12.0) SECONDS INR Sodium (136-145) mEq/L Potassium (3.5-5.1) mEq/L Chloride (98-107) mEq/L Carbon Dioxide (21-32) mEq/L Anion Gap (5-15) BUN (7-18) mg/dL Creatinine (0.55-1.02) mg/dL Est Cr Clr Drug Dosing mL/min Estimated GFR (MDRD) (>60) mL/min BUN/Creatinine Ratio (14-18) Glucose (74-106) mg/dL Calcium (8.5-10.1) mg/dL Total Bilirubin (0.2-1.0) mg/dL Direct Bilirubin (0.0-0.2) mg/dl GGT (5-55) U/L AST (15-37) U/L ALT (14-59) U/L Alkaline Phosphatase (46-116) U/L Ammonia 30 (11-32) umol/L Total Protein Albumin (3.4-5.0) g/dl Globulin gm/dL Albumin/Globulin Ratio (1-2) Urine Color Dark yellow (Yellow) Urine Appearance Cloudy H (Clear) Urine pH 6.0 (5.0-8.0) Ur Specific Melvin 1.025 (1.005-1.030) Urine Protein 1+ H (Negative) Urine Glucose (UA) Trace H (Negative) Urine Ketones Trace H (Negative) Urine Occult Blood Negative (Negative) Urine Nitrite Negative (Negative) Urine Bilirubin 3+ H (Negative) Urine Urobilinogen 1.0 (0.2-1.0) Ur Leukocyte Esterase Negative (Negative) Urine RBC 0-5 (0-5) /hpf Urine WBC 0-5 (0-5) /hpf Ur Epithelial Cells 5-10 H (0-5) /hpf Amorphous Sediment Few H (NOT SEEN) /hpf Urine Bacteria Many H (FEW) /hpf Urine Mucus Few (FEW) /hpf Ethyl Alcohol (0.00) gm% SARS-CoV-2 RNA (JUNIOR) Negative (NEGATIVE) Meds: Medications Generic Name Dose Route Start Last Admin Trade Name Freq PRN Reason Stop Dose Admin Potassium Chloride 10 meq/ 100 mls @ 100 mls/hr 07/03/20 12:30 07/03/20 14:42 Premix IV 07/03/20 16:29 100 mls/hr Q1H CORDELL Administration Sodium Chloride 1,000 mls @ 75 mls/hr 07/03/20 13:30 07/03/20 13:31 Normal Saline IV 75 mls/hr ASDIRECTED CORDELL Administration Discontinued Medications Generic Name Dose Route Start Last Admin Trade Name Freq PRN Reason Stop Dose Admin Potassium Chloride 20 meq 07/03/20 12:25 07/03/20 12:34 Klor-Con M20 PO 07/03/20 12:26 20 meq ONETIME ONE Administration - Re-Assessments/Exams Free Text/Narrative Re-Assessment/Exam: 07/03/20 14:17 Case discussed with [facility] 1 call they have no beds available. I did discuss situation with [facility] in [place] they can check and see if they have a bed and get back to me. 07/03/20 15:18 I was able to discuss the situation with Dr. Torres, hospitalist at [facility] in [place] is kind enough to accept the patient in transfer. Did review labs and vital signs with the patient and overall clinical situation. The patient has a low potassium this is been supplemented she is getting gentle fluids with NS at 100 cc an hour. I have got a serum ammonia pending. Discussed the pros and cons of starting antibiotics this will not be done at this point as she is not acting septic. 07/03/20 15:53 And is insistent on going by private car. Patient's need for IV fluids and potassium I did caution against going by private car but the patient discussed it with her and they are absolutely insistent on doing it this way. I did discuss this with Fátima at 1 call at [facility] in [place], she recommend the patient go through the East entrance and be routed through the emergency room but does not need to check into the emergency room. Departure - Departure Time of Disposition: 15:19 Disposition: DC/Tfer to [facility] Clinical Impression: Acute renal failure (ARF), Liver failure - Discharge Information Referrals: Julianna Erwin MD [Primary Care Provider] - Forms: ED Department Discharge Sepsis Event Note (ED) - Evaluation Sepsis Screening Result: No Definite Risk - Focused Exam Vital Signs: Vital Signs Temp Pulse Resp BP Pulse Ox 07/03/20 09:55 36.6 C 85 18 120/77 97 - My Orders Last 24 Hours: My Active Orders 07/03/20 12:30 Potassium Chloride [KCl 10 MEQ in Water 100 ML] 10 meq Premix Bag 1 bag IV Q1H 07/03/20 13:30 Sodium Chloride 0.9% [Normal Saline] 1,000 ml IV ASDIRECTED - Assessment/Plan Last 24 Hours: My Active Orders 07/03/20 12:30 Potassium Chloride [KCl 10 MEQ in Water 100 ML] 10 meq Premix Bag 1 bag IV Q1H 07/03/20 13:30 Sodium Chloride 0.9% [Normal Saline] 1,000 ml IV ASDIRECTED
[2020-07-03] MEDS ORDERED: Potassium Chloride 20 MEQ Tab.ER PO ONE (12:25)
[2020-07-03] MEDS: Potassium Chloride 10 MEQ in Premix Bag 1 BAG IV SCH ×2 (12:35→14:42)
[2020-07-03] MEDS ORDERED: Sodium Chloride 0.9% 1,000 ML IV SCH (13:30)
[2020-07-03 16:56] VITALS: BP 130/70
== END 2020-07-03 16:35 ==
LOC: JD.ED 09:43
DX: N17.9 Acute kidney failure, unspecified (principal); K72.90 Hepatic failure, unspecified without coma; I10 Essential (primary) hypertension; E66.9 Obesity, unspecified; F17.210 Nicotine dependence, cigarettes, uncomplicated; Z68.42 Body mass index [BMI] 45.0-49.9, adult; Z20.828 Contact with and (suspected) exposure to other viral communicable diseases
CPT/HCPCS: 36415; 80053; 80307; 81001; 82140; 82248; 82977; 85025; 85610; 87635; 96365; 96366; 99285; A9270; J3480; J7030; 99284; U0002

== ENCOUNTER 2020-10-04 09:25 | Emergency (ER) | payer BC ==
[2020-10-04] MEDS ORDERED: Metoclopramide 10 MG/2 ML SDV IVPUSH ONE (10:06)
[2020-10-04] MEDS ORDERED: HYDROmorphone 0.5 MG/0.5 ML Syringe IVPUSH ONE (10:06)
--- NOTE | 2020-10-04 10:08 | EDM.PDOC ---
ED HPI GENERAL MEDICAL PROBLEM - General Chief Complaint: General Stated Complaint: SENT BY DR SALAMANCA FOR KIDNEY/LIVER FAILURE Time Seen by Provider: 10/04/20 10:03 Source of Information: Reports: Patient, Family (son) History Limitations: Reports: No Limitations - History of Present Illness INITIAL COMMENTS - FREE TEXT/NARRATIVE: 35-year-old female presents to the ED at the request of her primary care physician Dr. Julianna Salamanca at from [facility]. Patient is known to have cirrhosis of the liver secondary to alcohol abuse and presents to the clinic for evaluation today. She apparently had COVID-19 illness diagnosed 27 August 2020 and was advised to come to the ED but did not seek further medical care. Patient reports she was quite ill with this viral infection with cough generalized myalgia headache and loss of appetite for about a week. She still has a nonproductive cough. Is experiencing orthopnea and is usually propping herself up on the couch or bed at night. Patient went off all of her medications for the entire month of August and apparently restarted medications, except for Aldactone which she could not find ,October 01-- 3 days ago. She presents to the ED with severe ascites and diffuse abdominal pain with nausea. No fever. She states she has been taking Zofran almost every 6 hours for nausea relief. She is getting intermittent nausea and vomiting of either recently eaten food or bilious material without blood. Patient is known apparently to have esophageal varices due to portal hypertension. She denies any fever or chills. On 3 occasions over the last month she has appreciated some blood per rectum with bowel movements. Bowel movements have been more formed up since not using lactulose. Denies constipation however. Patient has had a previous total abdominal hysterectomy and oophorectomy. She reports that her weight is going up in spite of not being able to eat hardly anything for the last month. Patient carries a history of morbid obesity. Dr. Salamanca mentioned to me that the patient is feeling more depressed and occasionally having suicidal ideation. She has been diagnosed with major depression for several years. History of methicillin-resistant staph aureus culture positive but unclear site from old notes. History of acute systolic congestive heart failure felt to be experiencing decompensated hepatic cirrhosis today. Patient is alert oriented and answers all questions appropriately today. She does not seem to be exhibiting any significant encephalopathy at this time. Patient denies any street drug use or alcohol use in the last 6 months. Onset: Gradual, Unknown/Unsure (Diagnosed with cirrhosis of the liver approximately 2-1/2 years ago. Condition has deteriorated over the last 6 weeks) Duration: Week(s):, Chronic, Getting Worse Location: Reports: Chest, Abdomen, Generalized (Generalized weakness with difficulty eating due to persistent nausea and vomiting. ) Quality: Reports: Ache, Pressure, Other (Reports diffuse abdominal pain which she rates as 6-7 out of 10.) Severity: Severe (Abdominal pain due to severe ascites.) Improves with: Reports: None Worsens with: Reports: Other (Worse with lying down.), Movement Context: Denies: Activity, Exercise, Lifting, Sick Contact, Trauma, Other Abdomen Pain Score (Numeric/FACES): 8 - Related Data Allergies Allergy/AdvReac Type Severity Reaction Status Date / Time No Known Allergies Allergy Verified 10/04/20 12:19 Home Meds: Home Meds Multivitamin [Multivitamins] 1 cap PO DAILY 06/16/20 [History] L.acidoph,Paracasei, B.lactis [Probiotic] 1 tab PO DAILY 07/03/20 [History] Thiamine [Vitamin B-1] 1 tab PO DAILY 07/03/20 [History] Past Medical History - Past Health History Medical/Surgical History: Denies Medical/Surgical History HEENT History: Reports: Epistaxis Cardiovascular History: Reports: Hypertension Respiratory History: Reports: None Gastrointestinal History: Reports: Chronic Constipation, Cirrhosis (Alcohol induced cirrhosis of the liver diagnosed 2-1/2 years ago. As of late. She has not been taking her lactulose.), GERD, GI Bleed (Reports blood per rectum on 3 occasions over the last month. Usually associated with bowel movement.), Jaundice Other Gastrointestinal History: celiac disease, dx 10 years ago Genitourinary History: Reports: Renal Calculus, Urinary Incontinence, Other (See Below) Other Genitourinary History: Interstitial Cystitis [employer] AND [employer]GEON History: Reports: Musculoskeletal History: Reports: Fibromyalgia, Other (See Below) Other Musculoskeletal History: "Losing cartilage in joints." Chronic Knee Pain Neurological History: Reports: None Psychiatric History: Reports: Addiction, Depression, Psych Hospitalization(s), Suicide Attempt, Suicidal Ideation Other Psychiatric History: 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 Endocrine/Metabolic History: Reports: Obesity/BMI 30+ Hematologic History: Reports: Other (See Below) Other Hematologic History: Factor V Leiden Immunologic History: Reports: None Oncologic (Cancer) History: Reports: None Dermatologic History: Reports: Other (See Below) Other Dermatologic History: Hirsutism - Infectious Disease History Infectious Disease History: Reports: Chicken Pox, MRSA, Novel Coronavirus - Past Surgical History HEENT Surgical History: Reports: Adenoidectomy, Myringotomy w Tube(s), Tonsillectomy Other HEENT Surgeries/Procedures: tubes in ears as child GI Surgical History: Reports: Colonoscopy Female Surgical History: Reports: Section, Hysterectomy, Tubal Ligation Other Female Surgeries/Procedures: 2 c-sections, repair, tubes removed Social & Family History - Family History Family Medical History: No Pertinent Family History - Tobacco Use Tobacco Use Status *Q: Never Tobacco User Second Hand Smoke Exposure: No - Caffeine Use Caffeine Use: Reports: Soda - Alcohol Use Alcohol Use History: Yes Alcohol Use in Last Twelve Months: Yes Alcohol Use Frequency: Not Used in Over 6 Months - Recreational Drug Use Recreational Drug Use: Yes Drug Use in Last 12 Months: Yes Recreational Drug Type: Reports: Marijuana/Hashish Recreational Drug Use Frequency: Daily - Living Situation & Occupation Living situation: Reports: , with Spouse, with Family (2 kids + her father) Occupation: Unemployed ED ROS GENERAL - Review of Systems Review Of Systems: See Below Constitutional: Reports: Malaise, Weakness, Fatigue, Weight Gain (He states she has gained about 12 pounds of weight in the last month perhaps more.). Denies: Fever, Chills HEENT: Reports: No Symptoms Respiratory: Reports: Shortness of Breath, Cough, Other (Nonproductive orthopnea). Denies: Wheezing, Pleuritic Chest Pain Cardiovascular: Reports: Blood Pressure Problem, Dyspnea on Exertion, Edema (Patient has anasarca.), Lightheadedness, Orthopnea. Denies: Chest Pain, Claudication (Elevated recently.), Palpitations Endocrine: Reports: Fatigue GI/Abdominal: Reports: Constipation, Diarrhea (Stools were diarrhea while on lactulose 3 times daily has not been taking this medication), Decreased Appetite (No room for food. She can drink sips of ice water and take a few bites of solids but limited due to nausea and vomiting), Hematochezia (Ports bleeding per rectum x3 in the last month.), Nausea, Vomiting (Sporadic but almost daily for the last), Other (Patient has diagnosed with esophageal varices on upper EGD done in the past) : Reports: Incontinence Musculoskeletal: Reports: Back Pain, Joint Pain (In her legs makes it very difficult to walk.) Skin: Reports: Jaundice, Bruising (Appreciates that she bruises easily), Pruritis (Neurolysed due to jaundice.) Neurological: Reports: Confusion (Reported intermittently but on my assessment she has normal cognitive function answers all questions appropriately.), Difficulty Walking (Due to severe edema of the lower extremities and), Weakness. Denies: Seizure, Syncope, Tingling Psychiatric: Reports: Depression (And reports intermittent suicidal ideation.), Suicidal Ideation (No definite plan.) Hematologic/Lymphatic: Reports: Anemia, Easy Bleeding, Easy Bruising Immunologic: Reports: No Symptoms ED EXAM, GENERAL - Physical Exam Exam: See Below Exam Limited By: No Limitations General Appearance: Alert, WD/WN, Mild Distress, Other (Temperature is 36.3. Heart rate was 97 and sinus. Respiratory is 18 with O2 sats of 95% room air BP 143/78. It subsequently has come down to 134/72.) Eye Exam: Bilateral Eye: PERRL, Other (Patient has bilateral scleral icterus.) Throat/Mouth: Other (Tongue is mildly dry and coated. The oropharynx shows no signs of infection) Head: Atraumatic, Normocephalic Neck: Normal Inspection, Supple, Non-Tender, Full Range of Motion, Carotid Bruit (Right-sided carotid bruit appreciated referred from her heart where she has aortic stenosis clinically.). No: Lymphadenopathy (L), Lymphadenopathy (R) Respiratory/Chest: Decreased Breath Sounds (Creased breath sounds to both posterior lung sanchez I believe limited by her obesity but also does have some dullness to percussion on the right side compatable with pleural effusion). No: Rales, Rhonchi, Wheezing Cardiovascular: Regular Rate, Rhythm, No Gallop, Systolic Murmur (Grade 2 out of 6 pansystolic ejection murmur heard best at the left lower sternal border. It is referred to the right upper anterior chest and right carotid artery. No murmur left axilla. Patient reports this is a new finding for her although history suggest she has had an echocardiogram in the last 6 months for this.). No: Normal Peripheral Pulses (Also is in her feet and lower extremities are obscured by severe dependent edema.) Peripheral Pulses: 0: Posterior Tibial (L) (Pulses in the feet and lower extremities are obscured due to severe dependent edema.), Posterior Tibial (R), Dorsalis Pedis (L), Dorsalis Pedis (R), 3+: Carotid (L), Carotid (R) GI/Abdominal: Normal Bowel Sounds, Soft, Tender (Tenderness around the umbilicus. There is slight erythema periumbilically across the lower abdomen with mildly increased warmth. She does have significant edema of the lower abdominal wall up to the umbilicus with peau d'orange appearance. No caput medusa evident. She is tender to palpation right upper quadrant of the abdomen). No: Guarding ( with no rebound or guarding), Rigid, Rebound (Female) Exam: Other (And is wearing a depends.) Back Exam: Normal Inspection, Decreased Range of Motion (Patient had a very difficult time sitting up on the bed two-person assist.). No: Full Range of Motion Extremities: Pedal Edema (4+ pitting edema of both lower extremities with evidence of anasarca clinically) Neurological: Alert, Oriented, CN II-XII Intact, Normal Cognition, Other (Waddli ng type gait.). No: Normal Gait Psychiatric: Flat Affect Skin Exam: Warm, Dry, Intact, Jaundice (Skin is diffusely mildly icteric.), Pallor #1 Interpretation EKG Date: 10/04/20 Time: 10:21 Rhythm: NSR Rate (Beats/Min): 90 [place]: Normal P-Wave: Present QRS: Other (Decreased voltage in both the limb and precordial leads. Initial poor R wave progression with near Q waves leads V1 and V2 consider old anteroseptal myocardial infarction) ST-T: Other (Nonspecific T wave flattening aVF lead V1 and V2) QT: Prolonged (Early prolonged) EKG Interpretation Comments: Abnormal ECG Course - Vital Signs Last Recorded V/S: Last Vital Signs Temp 36.3 C 10/04/20 09:35 Pulse 86 10/04/20 12:16 Resp 16 10/04/20 12:16 BP 145/89 H 10/04/20 12:16 Pulse Ox 96 10/04/20 12:16 - Orders/Labs/Meds Orders: Active Orders 24 hr Category Date Time Status EKG Documentation Completion [RC] STAT Care 10/04/20 10:04 Active CULTURE BLOOD [BC] Stat Lab 10/04/20 10:30 Received CULTURE BLOOD [BC] Stat Lab 10/04/20 10:40 Received URINALYSIS W/MICROSCOPIC [UA W/MICROSCOPIC] [URIN] Stat Lab 10/04/20 11:28 Results Potassium Chloride [KCl in Water 10 MEQ/100 ML] 10 meq Med 10/04/20 11:15 Active Premix Bag 1 bag IV Q1H Sodium Chloride 0.9% [Normal Saline] 1,000 ml Med 10/04/20 11:30 Active IV ASDIRECTED Blood Culture x2 Reflex Set [OM.PC] Stat Oth 10/04/20 10:05 Ordered Medication Orders Potassium Chloride 10 meq/ (Premix) 100 mls @ 100 mls/hr IV Q1H CORDELL Stop: 10/04/20 13:14 Last Infusion: 10/04/20 12:37 Dose: 100 mls/hr Documented by: Admin: 10/04/20 12:37 Dose: 100 mls/hr Documented by: Admin: 10/04/20 11:38 Dose: 100 mls/hr Documented by: SILVIA Sodium Chloride (Normal Saline) 1,000 mls @ 75 mls/hr IV ASDIRECTED CORDELL Last Admin: 10/04/20 11:38 Dose: 50 mls/hr Documented by: SILVIA Labs: Laboratory Tests 10/04/20 10/04/20 10/04/20 Range/Units 09:40 09:40 09:40 WBC (3.98-10.04) K/mm3 RBC (3.98-5.22) M/mm3 Hgb (11.2-15.7) gm/dl Hct (34.1-44.9) % MCV (79.4-94.8) fl MCH (25.6-32.2) pg MCHC (32.2-35.5) g/dl RDW Std Deviation (36.4-46.3) fL Plt Count (182-369) K/mm3 MPV (9.4-12.3) fl Neutrophils % (Manual) (40-60) % Band Neutrophils % (0-10) % Lymphocytes % (Manual) (20-40) % Atypical Lymphs % % Monocytes % (Manual) (2-10) % Eosinophils % (Manual) (0.7-5.8) % Basophils % (Manual) (0.1-1.2) Platelet Estimate Anisocytosis Macrocytosis Schistocytes RBC Morph Comment PT 17.6 H (9.7-12.0) SECONDS INR 1.66 APTT 31.3 (21.7-31.4) SECONDS Sodium 143 D (136-145) mEq/L Potassium 3.1 L (3.5-5.1) mEq/L Chloride 108 H (98-107) mEq/L Carbon Dioxide 25 (21-32) mEq/L Anion Gap 13.1 (5-15) BUN 7 (7-18) mg/dL Creatinine 1.0 (0.55-1.02) mg/dL Est Cr Clr Drug Dosing 67.16 mL/min Estimated GFR (MDRD) > 60 (>60) mL/min BUN/Creatinine Ratio 7.0 L (14-18) Glucose 105 (74-106) mg/dL Lactic Acid (0.4-2.0) mmol/L Calcium 8.5 (8.5-10.1) mg/dL Magnesium 1.7 L (1.8-2.4) mg/dl Total Bilirubin 6.7 H (0.2-1.0) mg/dL AST 45 H (15-37) U/L ALT 19 (14-59) U/L Alkaline Phosphatase 174 H (46-116) U/L Ammonia (11-32) umol/L Troponin I < 0.017 (0.00-0.056) ng/mL C-Reactive Protein 1.9 H* (<1.0) mg/dL NT-Pro-B Natriuret Pep 580 H (0-125) pg/mL Total Protein 6.1 L (6.4-8.2) g/dl Albumin 2.2 L (3.4-5.0) g/dl Globulin 3.9 gm/dL Albumin/Globulin Ratio 0.6 L (1-2) Lipase (73-393) U/L Urine Color (Yellow) Urine Appearance (Clear) Urine pH (5.0-8.0) Ur Specific Collins (1.005-1.030) Urine Protein (Negative) Urine Glucose (UA) (Negative) Urine Ketones (Negative) Urine Occult Blood (Negative) Urine Nitrite (Negative) Urine Bilirubin (Negative) Urine Urobilinogen (0.2-1.0) Ur Leukocyte Esterase (Negative) Urine Opiates Screen (BRLSCV=716) Ur Buprenorphine Scrn (CUTOFF=10) Ur Oxycodone Screen (MFJ9ZG=273) Urine Methadone Screen (BDMMKN=458) Ur Propoxyphene Screen (YUUWGM=580) Ur Barbiturates Screen (LIEZCV=284) Ur Tricyclics Screen (KYAWHY=772) Ur Phencyclidine Scrn (CUTOFF=25) Ur Amphetamine Screen (GGWGWA=806) U Methamphetamines Scrn (FTHDIX=240) U Benzodiazepines Scrn (LFPCVO=526) U Cocaine Metab Screen (VFJXEV=114) U Marijuana (THC) Screen (CUTOFF=50) Ethyl Alcohol 0.00 (0.00) gm% Ketones (0.0-0.3) mM SARS-CoV-2 RNA (JUNIOR) (NEGATIVE) 10/04/20 10/04/20 10/04/20 Range/Units 09:40 09:40 09:40 WBC (3.98-10.04) K/mm3 RBC (3.98-5.22) M/mm3 Hgb (11.2-15.7) gm/dl Hct (34.1-44.9) % MCV (79.4-94.8) fl MCH (25.6-32.2) pg MCHC (32.2-35.5) g/dl RDW Std Deviation (36.4-46.3) fL Plt Count (182-369) K/mm3 MPV (9.4-12.3) fl Neutrophils % (Manual) (40-60) % Band Neutrophils % (0-10) % Lymphocytes % (Manual) (20-40) % Atypical Lymphs % % Monocytes % (Manual) (2-10) % Eosinophils % (Manual) (0.7-5.8) % Basophils % (Manual) (0.1-1.2) Platelet Estimate Anisocytosis Macrocytosis Schistocytes RBC Morph Comment PT (9.7-12.0) SECONDS INR APTT (21.7-31.4) SECONDS Sodium (136-145) mEq/L Potassium (3.5-5.1) mEq/L Chloride (98-107) mEq/L Carbon Dioxide (21-32) mEq/L Anion Gap (5-15) BUN (7-18) mg/dL Creatinine (0.55-1.02) mg/dL Est Cr Clr Drug Dosing mL/min Estimated GFR (MDRD) (>60) mL/min BUN/Creatinine Ratio (14-18) Glucose (74-106) mg/dL Lactic Acid 2.0 (0.4-2.0) mmol/L Calcium (8.5-10.1) mg/dL Magnesium (1.8-2.4) mg/dl Total Bilirubin (0.2-1.0) mg/dL AST (15-37) U/L ALT (14-59) U/L Alkaline Phosphatase (46-116) U/L Ammonia 35 H (11-32) umol/L Troponin I (0.00-0.056) ng/mL C-Reactive Protein (<1.0) mg/dL NT-Pro-B Natriuret Pep (0-125) pg/mL Total Protein (6.4-8.2) g/dl Albumin (3.4-5.0) g/dl Globulin gm/dL Albumin/Globulin Ratio (1-2) Lipase (73-393) U/L Urine Color (Yellow) Urine Appearance (Clear) Urine pH (5.0-8.0) Ur Specific Collins (1.005-1.030) Urine Protein (Negative) Urine Glucose (UA) (Negative) Urine Ketones (Negative) Urine Occult Blood (Negative) Urine Nitrite (Negative) Urine Bilirubin (Negative) Urine Urobilinogen (0.2-1.0) Ur Leukocyte Esterase (Negative) Urine Opiates Screen (TBWSVB=990) Ur Buprenorphine Scrn (CUTOFF=10) Ur Oxycodone Screen (TTT9VP=871) Urine Methadone Screen (UVWMVE=171) Ur Propoxyphene Screen (VXLGOF=866) Ur Barbiturates Screen (DUBYNT=071) Ur Tricyclics Screen (ZERWEE=870) Ur Phencyclidine Scrn (CUTOFF=25) Ur Amphetamine Screen (EYGVLN=961) U Methamphetamines Scrn (JOFALO=203) U Benzodiazepines Scrn (LHFOBX=463) U Cocaine Metab Screen (ZBDVLU=364) U Marijuana (THC) Screen (CUTOFF=50) Ethyl Alcohol (0.00) gm% Ketones <0.01 (0.0-0.3) mM SARS-CoV-2 RNA (JUNIOR) (NEGATIVE) 10/04/20 10/04/20 10/04/20 Range/Units 09:40 09:56 10:20 WBC 4.72 (3.98-10.04) K/mm3 RBC 2.89 L (3.98-5.22) M/mm3 Hgb 9.3 L D (11.2-15.7) gm/dl Hct 29.0 L (34.1-44.9) % MCV 100.3 H (79.4-94.8) fl MCH 32.2 (25.6-32.2) pg MCHC 32.1 L (32.2-35.5) g/dl RDW Std Deviation 63.0 H (36.4-46.3) fL Plt Count 103 L (182-369) K/mm3 MPV 9.0 L (9.4-12.3) fl Neutrophils % (Manual) 57 (40-60) % Band Neutrophils % 0 (0-10) % Lymphocytes % (Manual) 31 (20-40) % Atypical Lymphs % 0 % Monocytes % (Manual) 9 (2-10) % Eosinophils % (Manual) 3 (0.7-5.8) % Basophils % (Manual) 0 L (0.1-1.2) Platelet Estimate Adequate Anisocytosis 2+ moderate Macrocytosis 1+ slight Schistocytes 1+ slight RBC Morph Comment Abnormal PT (9.7-12.0) SECONDS INR APTT (21.7-31.4) SECONDS Sodium (136-145) mEq/L Potassium (3.5-5.1) mEq/L Chloride (98-107) mEq/L Carbon Dioxide (21-32) mEq/L Anion Gap (5-15) BUN (7-18) mg/dL Creatinine (0.55-1.02) mg/dL Est Cr Clr Drug Dosing mL/min Estimated GFR (MDRD) (>60) mL/min BUN/Creatinine Ratio (14-18) Glucose (74-106) mg/dL Lactic Acid (0.4-2.0) mmol/L Calcium (8.5-10.1) mg/dL Magnesium (1.8-2.4) mg/dl Total Bilirubin (0.2-1.0) mg/dL AST (15-37) U/L ALT (14-59) U/L Alkaline Phosphatase (46-116) U/L Ammonia (11-32) umol/L Troponin I (0.00-0.056) ng/mL C-Reactive Protein (<1.0) mg/dL NT-Pro-B Natriuret Pep (0-125) pg/mL Total Protein (6.4-8.2) g/dl Albumin (3.4-5.0) g/dl Globulin gm/dL Albumin/Globulin Ratio (1-2) Lipase 85 (73-393) U/L Urine Color (Yellow) Urine Appearance (Clear) Urine pH (5.0-8.0) Ur Specific Collins (1.005-1.030) Urine Protein (Negative) Urine Glucose (UA) (Negative) Urine Ketones (Negative) Urine Occult Blood (Negative) Urine Nitrite (Negative) Urine Bilirubin (Negative) Urine Urobilinogen (0.2-1.0) Ur Leukocyte Esterase (Negative) Urine Opiates Screen (RILDRB=868) Ur Buprenorphine Scrn (CUTOFF=10) Ur Oxycodone Screen (AWR0DK=481) Urine Methadone Screen (PGSBAP=895) Ur Propoxyphene Screen (TNWKZT=439) Ur Barbiturates Screen (OSUGJI=877) Ur Tricyclics Screen (MVLOCU=192) Ur Phencyclidine Scrn (CUTOFF=25) Ur Amphetamine Screen (ANYUJN=656) U Methamphetamines Scrn (JPTRBV=123) U Benzodiazepines Scrn (EPXIIC=211) U Cocaine Metab Screen (XLUBDE=083) U Marijuana (THC) Screen (CUTOFF=50) Ethyl Alcohol (0.00) gm% Ketones (0.0-0.3) mM SARS-CoV-2 RNA (JUNIOR) Negative (NEGATIVE) 10/04/20 10/04/20 Range/Units 11:28 11:28 WBC (3.98-10.04) K/mm3 RBC (3.98-5.22) M/mm3 Hgb (11.2-15.7) gm/dl Hct (34.1-44.9) % MCV (79.4-94.8) fl MCH (25.6-32.2) pg MCHC (32.2-35.5) g/dl RDW Std Deviation (36.4-46.3) fL Plt Count (182-369) K/mm3 MPV (9.4-12.3) fl Neutrophils % (Manual) (40-60) % Band Neutrophils % (0-10) % Lymphocytes % (Manual) (20-40) % Atypical Lymphs % % Monocytes % (Manual) (2-10) % Eosinophils % (Manual) (0.7-5.8) % Basophils % (Manual) (0.1-1.2) Platelet Estimate Anisocytosis Macrocytosis Schistocytes RBC Morph Comment PT (9.7-12.0) SECONDS INR APTT (21.7-31.4) SECONDS Sodium (136-145) mEq/L Potassium (3.5-5.1) mEq/L Chloride (98-107) mEq/L Carbon Dioxide (21-32) mEq/L Anion Gap (5-15) BUN (7-18) mg/dL Creatinine (0.55-1.02) mg/dL Est Cr Clr Drug Dosing mL/min Estimated GFR (MDRD) (>60) mL/min BUN/Creatinine Ratio (14-18) Glucose (74-106) mg/dL Lactic Acid (0.4-2.0) mmol/L Calcium (8.5-10.1) mg/dL Magnesium (1.8-2.4) mg/dl Total Bilirubin (0.2-1.0) mg/dL AST (15-37) U/L ALT (14-59) U/L Alkaline Phosphatase (46-116) U/L Ammonia (11-32) umol/L Troponin I (0.00-0.056) ng/mL C-Reactive Protein (<1.0) mg/dL NT-Pro-B Natriuret Pep (0-125) pg/mL Total Protein (6.4-8.2) g/dl Albumin (3.4-5.0) g/dl Globulin gm/dL Albumin/Globulin Ratio (1-2) Lipase (73-393) U/L Urine Color Marisa H (Yellow) Urine Appearance Cloudy H (Clear) Urine pH 6.0 (5.0-8.0) Ur Specific [place] 1.020 (1.005-1.030) Urine Protein 1+ H (Negative) Urine Glucose (UA) Negative (Negative) Urine Ketones Trace H (Negative) Urine Occult Blood Trace-intact H (Negative) Urine Nitrite Positive H (Negative) Urine Bilirubin 3+ H (Negative) Urine Urobilinogen 4.0 H (0.2-1.0) Ur Leukocyte Esterase Negative (Negative) Urine Opiates Screen Presumptive positive H (OHUXKR=718) Ur Buprenorphine Scrn Negative (CUTOFF=10) Ur Oxycodone Screen Negative (JFU0IK=223) Urine Methadone Screen Negative (KMKYOQ=016) Ur Propoxyphene Screen Negative (TPJCUM=481) Ur Barbiturates Screen Negative (LYZJRS=445) Ur Tricyclics Screen Negative (HJMMRH=154) Ur Phencyclidine Scrn Negative (CUTOFF=25) Ur Amphetamine Screen Negative (VOKJRO=136) U Methamphetamines Scrn Negative (ARBSIW=094) U Benzodiazepines Scrn Negative (YEVFTV=803) U Cocaine Metab Screen Negative (JFQKWR=086) U Marijuana (THC) Screen Presumptive positive H (CUTOFF=50) Ethyl Alcohol (0.00) gm% Ketones (0.0-0.3) mM SARS-CoV-2 RNA (JUNIOR) (NEGATIVE) Meds: Medications Generic Name Dose Route Start Last Admin Trade Name Freq PRN Reason Stop Dose Admin Potassium Chloride 10 meq/ 100 mls @ 100 mls/hr 10/04/20 11:15 10/04/20 12:37 Premix IV 10/04/20 13:14 100 mls/hr Q1H CORDELL Administration Sodium Chloride 1,000 mls @ 75 mls/hr 10/04/20 11:30 10/04/20 11:38 Normal Saline IV 50 mls/hr ASDIRECTED CORDELL Administration Discontinued Medications Generic Name Dose Route Start Last Admin Trade Name Freq PRN Reason Stop Dose Admin Hydromorphone HCl 0.5 mg 10/04/20 10:06 10/04/20 10:15 Dilaudid IVPUSH 10/04/20 10:07 0.5 mg ONETIME ONE Administration Metoclopramide HCl 10 mg 10/04/20 10:06 10/04/20 10:14 Reglan IVPUSH 10/04/20 10:07 10 mg ONETIME ONE Administration - Radiology Interpretation Free Text/Narrative:: 55-year-old female presents to the ED at the request of her primary care physician Dr. Julianna Salamanca at [facility]. Patient presented to that facility today with increased weight gain shortness of breath on minimal exertion with orthopnea and diffuse abdominal pain. The history suggest that she was diagnosed with cirrhosis of liver approximately 2-1/2 years ago and after being diagnosed with COVID-19 illness on August 27, 2020 she has discontinued all of her oral medications up until 3 days ago. She has not taken any medicine yet today either. Patient presents therefore with decompensated cirrhosis of the liver with generalized pruritus, severe ascites and anasarca clinically.. Exam reveals anasarca with severe ascites and mild faint erythema periumbilically across the upper abdominal wall given some consideration of possible developing cellulitis. Pain however was localized more to the right upper quadrant of the abdomen on examination of the abdomen. Patient suffers from primary morbid obesity. Apparently never diagnosed with diabetes. Finding on examination of a grade 2 out of 6 pansystolic ejection murmur left lower sternal border compatible with aortic stenosis. Is unclear if this is a new finding. She has not yet ate or drank yet today. Has had some bleeding per rectum x3 over the last month associate with passage of firm hard to pass stool. Patient cannot identify where the blood was coming from but she has had a previous total abdominal hysterectomy and BSO. No recent bleeding per rectum appreciated. By history she has known esophageal varices but denies any hematemesis in spite of vomiting quite frequently with either bilious or recently eaten food. Plan saline lock. Given Dilaudid 0.5 mg IV for a diffuse abdominal pain and Reglan 10 mg IV for nausea relief. Routine labs will be done including serum ammonia lactic acid and CRP. Blood cultures x2 will be obtained. I will hold off on giving any diuretics at this time. Patient is obviously icteric both in the eyes and skin on exam. - Re-Assessments/Exams Free Text/Narrative Re-Assessment/Exam: 10/04/20 11:08 chest x-ray reveals large right-sided pleural effusion with over 50% of the lung field obscured by fluid is elevated right hemidiaphragm.. Appears to be atelectatic lung within the right lung base. Appears to have moderate cardiomegaly. Diffuse vascular congestion pattern. Lower part of the left lung is obscured I believe by soft tissue. 10/04/20 11:12 White count is normal at 4.72. She has 57% neutrophils on the micro. Hemoglobin is low at 9.3 with hematocrit of 29.0. MCV slightly elevated at 100.3. Platelet count low at 103,000 i.e. mild thrombocytopenia. PT is 17.6 with an INR of 1.66 and a PTT of 31.3ie mild autoanticoagulation. Sodium is 143 with potassium low at 3.1. Chloride is 108 with a bicarb of 25. Anion gap is 13.1 BUN is 7 with a creatinine of 1.0. GFR remains greater than 60. Glucose is 105 with a calcium of 8.5. Magnesium slightly low at 1.7. Total bilirubin elevated at 6.7 with an AST of 45 and an ALT of 19. Alk phosphatase was 174. Serum ammonia level is elevated at 35. Normal our lab is 11-32. BNP is 580. Total protein low at 6.1 with an albumin fraction low at 2.2. Lipase normal at 85. Blood alcohol is 0.00. Serum ketones are less than 0.01. And patient will receive potassium chloride IV 10 mEq/h x 2 hours. 10/04/20 11:52 Lactic acid is 2.0. C-reactive protein is 1.9. COVID-19 screen was negative. 10/04/20 12:18: I was able to speak to Dr Murphy--hospitalist at [facility] in [facility] and he has accepted care of this patient. She will be transferred due to multiple co-morbidities with anemia and auto-anticoagulation at 1.66. possible early cellulits developing abdominal wall around the umbilicus. Abdominal pain with recurrent nausea and vomitng . Known esophageal varices. She will require ambulance transport as she can hardly walk and can not lie flat due to worsening dyspnea. Departure - Departure Time of Disposition: 12:50 Disposition: DC/Tfer to Acute Hospital 02 Condition: Serious Clinical Impression: Pleural effusion associated with hepatic disorder, Elevated INR, Hypokalemia, CHF, Congestive heart failure, Aortic stenosis, mild Cirrhosis of liver Qualifiers: Hepatic cirrhosis type: alcoholic cirrhosis Ascites presence: with ascites Qualified Code(s): K70.31 - Alcoholic cirrhosis of liver with ascites Anemia Qualifiers: Anemia type: bone marrow failure Bone marrow failure anemia type: unspecified bone marrow failure Qualified Code(s): D61.9 - Aplastic anemia, unspecified CHF (congestive heart failure), NYHA class II Qualifiers: Congestive heart failure type: systolic Congestive heart failure chronicity: chronic Qualified Code(s): I50.22 - Chronic systolic (congestive) heart failure - Discharge Information *PRESCRIPTION DRUG MONITORING PROGRAM REVIEWED*: Not Applicable *COPY OF PRESCRIPTION DRUG MONITORING REPORT IN PATIENT NANDO: Not Applicable Instructions: Hypokalemia, Pleural Effusion Referrals: Julianna Salamanca MD [Primary Care Provider] - Forms: ED Department Discharge Sepsis Event Note (ED) - Evaluation Sepsis Screening Result: No Definite Risk - Focused Exam Vital Signs: Vital Signs Temp Pulse Resp BP Pulse Ox 10/04/20 12:16 86 16 145/89 H 96 10/04/20 09:35 36.3 C 97 18 143/78 H 95 - My Orders Last 24 Hours: My Active Orders 10/04/20 10:04 EKG Documentation Completion [RC] STAT 10/04/20 10:05 Blood Culture x2 Reflex Set [OM.PC] Stat 10/04/20 10:30 CULTURE BLOOD [BC] Stat 10/04/20 10:40 CULTURE BLOOD [BC] Stat 10/04/20 11:15 Potassium Chloride [KCl in Water 10 MEQ/100 ML] 10 meq Premix Bag 1 bag IV Q1H 10/04/20 11:28 URINALYSIS W/MICROSCOPIC [UA W/MICROSCOPIC] [URIN] Stat 10/04/20 11:30 Sodium Chloride 0.9% [Normal Saline] 1,000 ml IV ASDIRECTED - Assessment/Plan Last 24 Hours: My Active Orders 10/04/20 10:04 EKG Documentation Completion [RC] STAT 10/04/20 10:05 Blood Culture x2 Reflex Set [OM.PC] Stat 10/04/20 10:30 CULTURE BLOOD [BC] Stat 10/04/20 10:40 CULTURE BLOOD [BC] Stat 10/04/20 11:15 Potassium Chloride [KCl in Water 10 MEQ/100 ML] 10 meq Premix Bag 1 bag IV Q1H 10/04/20 11:28 URINALYSIS W/MICROSCOPIC [UA W/MICROSCOPIC] [URIN] Stat 10/04/20 11:30 Sodium Chloride 0.9% [Normal Saline] 1,000 ml IV ASDIRECTED
--- NOTE | 2020-10-04 10:42 | CR ---
Chest: Portable view of the chest was obtained. Comparison: Prior chest x-ray of 05/17/14. Right hemidiaphragm is elevated or possibly subpulmonic pleural effusion. This is an interval change from prior exam. Heart is enlarged. Parenchymal density is noted within the right lung base most likely representing prominent atelectasis. Left lung is clear. Bony structures are grossly intact. Impression: 1. Elevated right hemidiaphragm versus subpulmonic pleural effusion. 2. Density within the right lung base most likely due to prominent atelectasis. 3. Heart is enlarged. Diagnostic code #3
[2020-10-04] MEDS ORDERED: Sodium Chloride 0.9% 1,000 ML IV SCH (11:30)
[2020-10-04] MEDS: Potassium Chloride 10 MEQ in Premix Bag 1 BAG IV SCH ×2 (11:38→12:37)
[2020-10-04 12:17] VITALS: BP 145/89; PULSE 86
== END 2020-10-04 13:50 ==
LOC: JD.ED 09:25
DX: K70.31 Alcoholic cirrhosis of liver with ascites (principal); I11.0 Hypertensive heart disease with heart failure; I50.22 Chronic systolic (congestive) heart failure; R79.1 Abnormal coagulation profile; E87.6 Hypokalemia; I35.0 Nonrheumatic aortic (valve) stenosis; D61.9 Aplastic anemia, unspecified; E66.9 Obesity, unspecified; Z68.43 Body mass index [BMI] 50.0-59.9, adult; Z86.19 Personal history of other infectious and parasitic diseases; Z20.822 Contact with and (suspected) exposure to COVID-19
CPT/HCPCS: 36415; 71045; 80053; 80179; 80306; 81001; 82009; 82140; 83605; 83690; 83735; 83880; 84484; 85007; 85027; 85610; 85730; 86140; 87040; 87635; 93005; 96365; 96366; 96375; 99285; J1170; J2765; J3480; J7030; 93010; U0002

== ENCOUNTER 2023-07-23 14:20 | Emergency (ER) | payer BC, MEDICAID ==
[2023-07-23 15:36] LABS: BASOPHILS PERCENT AUTO 0.8 % (0.0-1.0); EOSINOPHILS ABSOLUTE AUTO 0.2 K/mm3 (0.0-0.4); EOSINOPHILS PERCENT AUTO 3.8 % (0.0-6.0); HEMATOCRIT 36.2 % (37.0-47.0); HEMOGLOBIN 12.2 gm/dl (12.0-16.0); IMMATURE GRAN ABSOLUTE AUTO 0.01 K/mm3 (0.00-0.05); IMMATURE GRAN PERCENT AUTO 0.2 % (0.0-0.4); LYMPHOCYTES ABSOLUTE AUTO 1.3 K/mm3 (1.0-4.8); LYMPHOCYTES PERCENT AUTO 26.5 % (24.0-44.0); MEAN CORPUSCULAR HEMOGLOBIN 32.5 pg (28.0-32.0); MEAN CORPUSCULAR HGB CONC 33.7 g/dl (32.0-36.0); MEAN CORPUSCULAR VOLUME 96.5 fl (83.0-99.0); MEAN PLATELET VOLUME 9.8 fl (9.4-12.3); MONOCYTES ABSOLUTE AUTO 0.5 K/mm3 (0.0-0.8); MONOCYTES PERCENT AUTO 10.9 % (0.0-8.0); NEUTROPHILS ABSOLUTE AUTO 2.7 K/mm3 (1.8-7.7); NEUTROPHILS PERCENT AUTO 57.8 % (41.0-71.0); PLATELET COUNT,PLT 118 K/mm3 (150-400); RED BLOOD CELL COUNT 3.75 M/mm3 (4.10-5.30); WHITE BLOOD CELL COUNT,WBC 4.75 K/mm3 (3.9-11.3)
[2023-07-23 15:48] LABS: A/G RATIO 1.1 (1-2); ALBUMIN 3.2 g/dl (3.4-5.0); ANION GAP 12.3 (5-15); BILIRUBIN TOTAL 1.1 mg/dL (0.2-1.0); BUN/CREATININE RATIO 13.3 (14-18); CALCIUM 8.8 mg/dL (8.5-10.1); CREATININE 0.9 mg/dL (0.55-1.02); EST CRCL DRUG DOSING (CG) 73.19 mL/min; POTASSIUM,K 4.3 mEq/L (3.5-5.1); PROTEIN TOTAL,TP 6.1 g/dl (6.4-8.2)
[2023-07-23] MEDS ORDERED: Sodium Chloride 0.9% 10 ML Syringe FLUSH ONE (16:32)
[2023-07-23] MEDS ORDERED: Iopamidol 612 MG/ML 100 ML Bottle IVPUSH ONE (16:32)
[2023-07-23] MEDS ORDERED: Ketorolac 30 MG/ML SDV IVPUSH ONE (16:52)
[2023-07-23 17:43] VITALS: BP 128/85; PULSE 72
== END 2023-07-23 17:40 | disposition home or self-care (01) ==
LOC: JD.ED 14:20
DX: T74.11XA Adult physical abuse, confirmed, initial encounter (principal); K70.30 Alcoholic cirrhosis of liver without ascites; I12.9 Hypertensive chronic kidney disease with stage 1 through stage 4 chronic kidney disease, or unspecified chronic kidney disease; N18.9 Chronic kidney disease, unspecified; E66.9 Obesity, unspecified; Z68.41 Body mass index [BMI] 40.0-44.9, adult; F17.210 Nicotine dependence, cigarettes, uncomplicated; Z86.16 Personal history of COVID-19; Z90.710 Acquired absence of both cervix and uterus; Z79.899 Other long term (current) drug therapy
CPT/HCPCS: 36415; 71260; 71260-26; 73562-26-LT; 73562-LT; 74177; 74177-26; 80053; 82140; 84703; 85025; 96374; 99284-25; J1885; J3490; Q9967

== ENCOUNTER 2023-10-03 19:38 | Emergency (ER) | payer MEDICAID, OTHER ==
[2023-10-03 20:00] VITALS: BP 169/86; PULSE 75
[2023-10-03 21:27] LABS: BASOPHILS ABSOLUTE AUTO 0.1 K/mm3 (0.0-0.2); EOSINOPHILS ABSOLUTE AUTO 0.2 K/mm3 (0.0-0.4); EOSINOPHILS PERCENT AUTO 3.9 % (0.0-6.0); HEMATOCRIT 41.5 % (37.0-47.0); IMMATURE GRAN ABSOLUTE AUTO 0.02 K/mm3 (0.00-0.05); IMMATURE GRAN PERCENT AUTO 0.3 % (0.0-0.4); LYMPHOCYTES ABSOLUTE AUTO 2.1 K/mm3 (1.0-4.8); LYMPHOCYTES PERCENT AUTO 33.7 % (24.0-44.0); MEAN CORPUSCULAR HEMOGLOBIN 32.5 pg (28.0-32.0); MEAN CORPUSCULAR HGB CONC 33.7 g/dl (32.0-36.0); MEAN CORPUSCULAR VOLUME 96.3 fl (83.0-99.0); MEAN PLATELET VOLUME 9.3 fl (9.4-12.3); MONOCYTES ABSOLUTE AUTO 0.7 K/mm3 (0.0-0.8); MONOCYTES PERCENT AUTO 12.2 % (0.0-8.0); NEUTROPHILS PERCENT AUTO 48.9 % (41.0-71.0); PLATELET COUNT,PLT 130 K/mm3 (150-400); RED BLOOD CELL COUNT 4.31 M/mm3 (4.10-5.30); WHITE BLOOD CELL COUNT,WBC 6.08 K/mm3 (3.9-11.3)
[2023-10-03] MEDS: Ondansetron 4 MG/2 ML SDV IVPUSH ONE (21:44)
[2023-10-03] MEDS: Sodium Chloride 0.9% 1,000 ML IV STA (21:44)
[2023-10-03] MEDS: HYDROmorphone 1 MG/ML Syringe IM ONE (21:46)
[2023-10-03 21:54] LABS: A/G RATIO 1.2 (1-2); ALANINE AMINOTRANSFERASE,ALT 21 U/L (14-59); ALBUMIN 3.7 g/dl (3.4-5.0); ALKALINE PHOSPHATASE 134 U/L (46-116); ANION GAP 12.8 (5-15); ASPARTATE AMNIOTRANSFERASE,AST 25 U/L (15-37); BILIRUBIN TOTAL 1.1 mg/dL (0.2-1.0); BLOOD UREA NITROGEN,BUN 13 mg/dL (7-18); C-REACTIVE PROTEIN <0.2 mg/dL (<1.0); CALCIUM 8.7 mg/dL (8.5-10.1); CARBON DIOXIDE,CO2 27 mEq/L (21-32); CHLORIDE,CL 107 mEq/L (98-107); ESTIMATED GFR 73 mL/min (>60); GLUCOSE RANDOM 108 mg/dL (70-99); LIPASE 73 U/L (16-77); POTASSIUM,K 3.8 mEq/L (3.5-5.1); PROTEIN TOTAL,TP 6.7 g/dl (6.4-8.2); SODIUM,NA 143 mEq/L (136-145)
[2023-10-03] MEDS: Sodium Chloride 0.9% 10 ML Syringe FLUSH PRN (22:53)
[2023-10-04] LABS: INR 1.07; PROTHROMBIN TIME 11.4 SECONDS (9.7-12.0)
[2023-10-04] MEDS: Hyoscyamine 0.125 MG Tab.SL SL ONE (00:54)
[2023-10-04] MEDS: Acetaminophen/HYDROcodone 325-5 MG Tab PO ONE (00:54)
== END 2023-10-04 01:00 | disposition home or self-care (01) ==
LOC: JD.ED 19:38
DX: K80.50 Calculus of bile duct without cholangitis or cholecystitis without obstruction (principal); F17.210 Nicotine dependence, cigarettes, uncomplicated; I12.9 Hypertensive chronic kidney disease with stage 1 through stage 4 chronic kidney disease, or unspecified chronic kidney disease; N18.9 Chronic kidney disease, unspecified; E66.9 Obesity, unspecified; Z86.16 Personal history of COVID-19; Z79.899 Other long term (current) drug therapy
CPT/HCPCS: 36415; 76705; 80053; 82977; 83690; 84703; 85025; 85610; 86140; 96361; 96372; 96374; 99284; A9270; J1170; J2405; J3490; J7030

== ENCOUNTER 2024-04-02 15:20 | Emergency (ER) | payer SELFPAY ==
[2024-04-02] MEDS ORDERED: fentaNYL 100 MCG/2 ML SDV IVPUSH ONE (15:48)
[2024-04-02] MEDS ORDERED: Naloxone 0.4 MG/ML SDV IVPUSH PRN (15:48)
[2024-04-02] MEDS: Sodium Chloride 0.9% 1,000 ML IV ONE ×2 (16:12→20:33)
[2024-04-02] MEDS: Ketorolac 15 MG/ML SDV IVPUSH ONE (16:14)
[2024-04-02] MEDS: Ondansetron 4 MG/2 ML SDV IVPUSH ONE (16:14)
[2024-04-02] MEDS: Sodium Chloride 0.9% 10 ML Syringe FLUSH PRN (16:22)
[2024-04-02 16:29] LABS: BASOPHILS PERCENT AUTO 0.2 % (0.0-1.0); EOSINOPHILS PERCENT AUTO 0.4 % (0.0-6.0); IMMATURE GRAN ABSOLUTE AUTO 0.02 K/mm3 (0.00-0.05); IMMATURE GRAN PERCENT AUTO 0.2 % (0.0-0.4); LYMPHOCYTES ABSOLUTE AUTO 0.6 K/mm3 (1.0-4.8); LYMPHOCYTES PERCENT AUTO 7.3 % (24.0-44.0); MEAN CORPUSCULAR HGB CONC 33.3 g/dl (32.0-36.0); MEAN CORPUSCULAR VOLUME 95.9 fl (83.0-99.0); MONOCYTES ABSOLUTE AUTO 0.3 K/mm3 (0.0-0.8); MONOCYTES PERCENT AUTO 3.8 % (0.0-8.0); NEUTROPHILS ABSOLUTE AUTO 7.3 K/mm3 (1.8-7.7); NEUTROPHILS PERCENT AUTO 88.1 % (41.0-71.0); PLATELET COUNT,PLT 108 K/mm3 (150-400); RED BLOOD CELL COUNT 4.38 M/mm3 (4.10-5.30); WHITE BLOOD CELL COUNT,WBC 8.24 K/mm3 (3.9-11.3)
[2024-04-02] MEDS: Iopamidol 612 MG/ML 100 ML Bottle IVPUSH ONE (16:40)
[2024-04-02 17:04] LABS: A/G RATIO 1.2 (1-2); ALBUMIN 3.7 g/dl (3.4-5.0); ANION GAP 14.3 (5-15); BILIRUBIN TOTAL 1.7 mg/dL (0.2-1.0); BUN/CREATININE RATIO 13.6 (14-18); CALCIUM 9.2 mg/dL (8.5-10.1); CREATININE 1.1 mg/dL (0.55-1.02); EST CRCL DRUG DOSING (CG) 59.29 mL/min; POTASSIUM,K 4.3 mEq/L (3.5-5.1); PROTEIN TOTAL,TP 6.7 g/dl (6.4-8.2)
[2024-04-02 17:54] LABS: APPEARANCE,URINE SLT CLOUDY (Clear); BILIRUBIN,URINE NEGATIVE (Negative); COLOR,URINE YELLOW (Yellow); GLUCOSE,URINE NEGATIVE (Negative); KETONES,URINE 1+ (Negative); LEUKOCYTE ESTERASE,URINE TRACE (Negative); NITRITE,URINE POSITIVE (Negative); OCCULT BLOOD,URINE TRACE-INTACT (Negative); PH,URINE 6.5 (5.0-8.0); PROTEIN,URINE NEGATIVE (Negative)
[2024-04-02 18:55] LABS: BACTERIA,URINE MANY /hpf (FEW); MUCUS,URINE FEW /hpf (FEW); WBC,URINE 40-50 /hpf (0-5)
[2024-04-02] MEDS: cefTRIAXone 2 GM in Sodium Chloride 0.9% 100 ML IV ONE (19:43)
[2024-04-02] MEDS: Magnesium Oxide 400 MG Tab PO ONE (19:45)
[2024-04-03] MEDS: HYDROmorphone 0.5 MG/0.5 ML Syringe IVPUSH ONE ×2 (02:48→07:24)
[2024-04-03] MEDS: Ondansetron 4 MG/2 ML SDV IVPUSH ONE (03:39)
[2024-04-03] MEDS: Lactated Ringers 1,000 ML IV SCH (03:39)
[2024-04-03] MEDS: cefTRIAXone 1 GM in Sodium Chloride 0.9% 100 ML IV ONE (10:13)
[2024-04-03 10:17] VITALS: BP 122/67; PULSE 85
[2024-04-03] MEDS: Ketorolac 15 MG/ML SDV IVPUSH ONE (11:02)
== END 2024-04-03 11:15 ==
LOC: JD.ED 15:20
DX: N20.1 Calculus of ureter (principal); N12 Tubulo-interstitial nephritis, not specified as acute or chronic; I10 Essential (primary) hypertension; E66.9 Obesity, unspecified; Z86.16 Personal history of COVID-19; Z90.710 Acquired absence of both cervix and uterus; Z68.37 Body mass index [BMI] 37.0-37.9, adult; F17.210 Nicotine dependence, cigarettes, uncomplicated; Z79.899 Other long term (current) drug therapy
CPT/HCPCS: 36415; 74177; 80053; 81001; 83605; 83690; 83735; 84703; 85025; 87040; 87077; 87086; 87088; 87154; 87186; 96361; 96365; 96366; 96375; 96376; 99285; A9270; J0696; J1170; J1885; J2405; J3490; J7030; J7120; Q9967; 99284

== ENCOUNTER 2024-08-24 22:39 | Emergency (ER) | payer MEDICAID ==
[2024-08-25] MEDS: Ibuprofen 600 MG Tab PO ONE (02:39)
[2024-08-25 03:19] VITALS: BP 130/85; PULSE 80
== END 2024-08-25 03:20 | disposition home or self-care (01) ==
LOC: JD.ED 22:39
DX: M25.522 Pain in left elbow (principal); M25.552 Pain in left hip; M54.50 Low back pain, unspecified; I10 Essential (primary) hypertension; E66.9 Obesity, unspecified; F17.210 Nicotine dependence, cigarettes, uncomplicated; Z86.16 Personal history of COVID-19; Z90.710 Acquired absence of both cervix and uterus; Z79.899 Other long term (current) drug therapy; Z68.41 Body mass index [BMI] 40.0-44.9, adult; Y04.0XXA Assault by unarmed brawl or fight, initial encounter
CPT/HCPCS: 72072; 72072-26; 72100; 72100-26; 72170; 72170-26; 73080-26-LT; 73080-LT; 73552-26-LT; 73552-LT; 99284; A9270-GY

== ENCOUNTER 2025-07-05 06:00 | Day surgery (SDC) | payer MEDICAID ==
[~2025-07-05 06:00] MED LIST: Sodium Chloride 0.9% 10 ML Syringe FLUSH PRN; Sodium Chloride 0.9% 10 ML Syringe FLUSH SCH
[2025-07-05] MEDS ORDERED: propofoL 500 MG/50 ML 50 ML ONE ×2 (06:07→07:39)
[2025-07-05] MEDS: Lactated Ringers 1,000 ML IV SCH (06:15)
[2025-07-05] MEDS ORDERED: fentaNYL 100 MCG/2 ML SDV ONE (06:19)
[2025-07-05] MEDS: oxyCODONE ER 10 MG TAB.ER PO ONE (06:35)
[2025-07-05] MEDS ORDERED: Midazolam 1 MG/ML 2 ML SDV ONE (06:36)
[2025-07-05] MEDS ORDERED: Ropivacaine 0.5% 5 MG/ML 30 ML SDV ONE (06:37)
[2025-07-05] MEDS ORDERED: EPINEPHrine 1 MG/ML SDV ONE (06:37)
[2025-07-05] MEDS ORDERED: Ondansetron 4 MG/2 ML SDV ONE (06:37)
[2025-07-05] MEDS ORDERED: Dexamethasone 4 MG/ML 5 ML MDV ONE (06:37)
[2025-07-05] MEDS ORDERED: dexmedeTOMIDine HCl 200 MCG/2 ML SDV ONE (06:37)
[2025-07-05] MEDS ORDERED: Lidocaine 1% 2 ML ONE (07:01)
[2025-07-05] MEDS ORDERED: VANCOmycin 1.5 GM/300 ML 1.5 GM in Premix Bag 1 BAG IV ONE (08:00)
[2025-07-05] MEDS: Morphine 8 MG, EPINEPHrine 0.3 MG, Cefuroxime 750 MG, Ketorolac 30 MG, Sodium Chloride ... PRN (08:02)
[2025-07-05] MEDS ORDERED: Lactated Ringers 1,000 ML ONE (08:06)
[2025-07-05] MEDS: Triamcinolone Acetonide 40 MG/ML 1 ML SDV ONE (08:27)
[2025-07-05] MEDS: fentaNYL 100 MCG/2 ML SDV IVPUSH PRN (09:01)
[2025-07-05 11:36] VITALS: BP 133/77; PULSE 71
== END 2025-07-05 12:05 | disposition home or self-care (01) ==
LOC: JD.SDS 06:00
PROVIDERS: ATTEND Orthopaedic Surgery
DX: M17.0 Bilateral primary osteoarthritis of knee (principal); E66.9 Obesity, unspecified; I10 Essential (primary) hypertension; F17.210 Nicotine dependence, cigarettes, uncomplicated; Z68.41 Body mass index [BMI] 40.0-44.9, adult; Z79.01 Long term (current) use of anticoagulants; Z79.899 Other long term (current) drug therapy
CPT/HCPCS: 20610; 27447; 64447; 73560; 97110; 97116; 97161; A9270; C1713; C1776; J0169; J0665; J0690; J0697; J1100; J1885; J2003; J2250; J2272; J2405; J2704; J2795; J3010; J3301; J3373; J3375; J7120